=== PATIENT | male | born 1960 | race Caucasian/White ===

== ENCOUNTER → 2018-01-29 | Outpatient (CLI) | payer MEDICARE ==
[2014-05-05 12:15] VITALS: BMI 21.9
[~2018-01-29] MED LIST: ALB6.7R INH; ALP25 PO; ALP5 PO; BISM-40 PO; BUSP10TA95 PO; CEP500 PO; CIT20 PO; CLIN-75 PO; CLO1 PO; CLON-303 PO; DIA5 PO; DUL20 PO; DUL30 PO; ESC10 PO; ESOM40CA42 PO; FOL1 PO; GUALA600 PO; HCTZ25 PO; HYDR50CA47 PO; LANI SC; LEVO-85 PO; LISI-346 PO; LISI-362 PO; LORA-1455 PO; MET500 PO; MET850 PO; METF-415 PO; METF-420 PO; METO-566 PO; MULT-1350 PO; MULT-806 PO; MULT1CAP41 PO; MULT1TAB64 PO; NAPR550T20 PO; NO RTN MEDS; NOR25 PO; NYST15CR32 TP; NYST1POW TOP; OLAN2.5T20 PO; OND4 PO; ONDA4TAB PO; ONDA4TAB97 PO; ONDA8TAB94 PO; OXYGEN INH; PANT40TA63 PO; PRED20TA6 PO; PROAIRPT IH; PROM-110 PO; QUET50TA21 PO; RAN150 PO; RANI-320 PO; SILD25TA6 PO; THIA100T55 PO; TRAM-627 PO; TRAZ-133 PO; TRAZ50 PO; VITA0.4T7 PO; [UNRECOGNIZED DRUG - CODE] PO; [UNRECOGNIZED DRUG - REMARK]
--- NOTE | 2018-01-29 11:11 | RADIOLOGY IMAGING REPORT ---
FACILITY: [facility] - [place] PATIENT NAME: Casey Guzman : 1960 MR: [id number] V: [id number] EXAM DATE: ORDERING PHYSICIAN: TAMMIE GONZALEZ TECHNOLOGIST: Location: [facility] - [place] Patient: Casey Guzman : 1960 Visit/Account:[id number] Date of Sevice: 01/29/2018 Exam type: CHEST PA AND LAT History: COPD, shortness of breath, possible pneumonia Comparison: May 04, 2014. Findings: There is mild linear scarring in the mid to lower lung kumar bilaterally similar to the prior study. There is no evidence of acute effusions, infiltrates or edema. The cardiac silhouette is normal in size. The trachea is in midline. IMPRESSION: 1. Mild linear scarring in the mid to lower lung kumar similar to the prior study from December 04, 2013 Report Dictated By: Shona Lee MD at 01/29/2018 11:03 AM Report E-Signed By: Shona Lee MD at 01/29/2018 11:08 AM WSN:[email or web address]
== END ==
LOC: RAD 10:27
PROVIDERS: ATTEND Nurse Practitioner Family
DX: R91.8 Other nonspecific abnormal finding of lung field (principal)
CPT/HCPCS: 71046

== ENCOUNTER → 2018-03-31 | Outpatient (REF) | payer MEDICARE ==
[2014-05-05 12:15] VITALS: BMI 21.9
[2018-03-31 12:28] LABS: PLATELET COUNT, AUTOMATED 180 K/uL (150-450)
== END ==
LOC: ZZSTITCHES 11:51
PROVIDERS: ATTEND Physician Assistant
DX: R11.2 Nausea with vomiting, unspecified (principal)
CPT/HCPCS: 82040; 82247; 82310; 82374; 82435; 82565; 82947; 84075; 84132; 84155; 84295; 84450; 84460; 84520; 85025

== ENCOUNTER 2018-07-11 09:24 | Emergency (ER) | payer MEDICARE, MEDICAID ==
[2014-05-05 12:15] VITALS: BMI 21.9
[2018-07-11] MEDS ORDERED: NS(*) 0.9% 1000 ML BAG 1,000 ML IV ONE (09:26)
[2018-07-11] MEDS ORDERED: ALBUTEROL/IPRATROPIUM 3 ML NEB NEB ONE (09:30)
--- NOTE | 2018-07-11 09:31 | ER Report ---
History and Physical Time Seen By MD: 09:31 HPI/ROS CHIEF COMPLAINT: Alcohol intoxication, status post fall HISTORY OF PRESENT ILLNESS: Patient is a 57-year-old male who admitted to drinking a 1/5th of vodka this morning. Patient reportedly was brought into the emergency department by his neighbor who reports that the patient showed up on his doorstep this morning. Patient has a small laceration on the bridge of his nose and admits to falling on the sidewalk face forward. Patient denies taking illicit drugs, Tylenol, aspirin, antifreeze. Patient was belligerent at time of initial evaluation, threatening staff. Please see nursing notes for further details. REVIEW OF SYSTEMS: Constitutional: No fever, no chills. Eyes: No discharge. ENT: Sore nose, laceration to the bridge of the nose Cardiovascular: No chest pain, no palpitations. Respiratory: + Shortness of breath, wheezing Gastrointestinal: No abdominal pain, no vomiting. Genitourinary: No hematuria. Musculoskeletal: No back pain. Skin: No rashes. Neurological: No headache. Allergies: Coded Allergies: No Known Drug Allergies (Verified , 03/25/14) Uncoded Allergies: tijerina peppers (Adverse Reaction, Mild, GI DISTRESS, 01/25/10) Tijerina peppers only. Other types of peppers OK. Home Meds Active Scripts Folic Acid (FOLIC ACID) 1 Mg Tablet, 1 MG PO QDAY for 30 Days, #30 TAB Prov:ANISA ASTUDILLO DO 07/11/18 Thiamine Hcl (THIAMINE HCL) 100 Mg Tablet, 100 MG PO QDAY for 30 Days, #30 TAB Prov:ANISA ASTUDILLO DO 07/11/18 Reported Medications Escitalopram Oxalate (LEXAPRO) 10 Mg Tab, 10 MG PO QDAY, #30 TAB 1 Refill 5mg(half a tablet) daily for 4 days, the 10mg(1 whole tablet) daily. 05/07/14 Promethazine Hcl (PROMETHAZINE HCL) 25 Mg Tablet, 25 MG PO Q8H Y for NAUSEA, # 10 TAB 05/07/14 Sildenafil Citrate (VIAGRA) 25 Mg Tablet, 25 MG PO ONCE Y for SEE COMMENT, #5 0 Refills 1 tab 90 minutes priop to sexual activity 05/07/14 Multivitamin (MULTI VITAMIN DAILY) 1 Each Tablet, 1 EACH PO QDAY 05/07/14 Albuterol Sulfate (PROVENTIL HFA) 6.7 Gm Inh, 1-2 PUFF INH 3-4XD, INH 03/02/14 Lisinopril (LISINOPRIL) 10 Mg Tablet, 10 MG PO QDAY 03/02/14 Naproxen Sodium (NAPROXEN SODIUM) 550 Mg Tablet, 550 MG PO TID, TAB 03/02/14 Albuterol Sulfate (Proair Hfa) 8.5 Gm Aer.w.adap, 8.5 GM IH PRN, 0 Refills 11/13/11 Hx Smoking: Yes Smoking Status: Former Smoker Exposure to Second Hand Smoke?: No Hx Substance Use Disorder: Yes (etoh dependence) Hx Alcohol Use: Yes Constitutional Vital Sign - Last 24 Hours 07/11/18 07/11/18 07/11/18 07/11/18 09:25 09:30 09:35 09:35 Temp 97.7 Pulse 96 104 85 Resp 22 14 20 B/P (MAP) 161/111 164/115 (131) Pulse Ox 95 88 95 O2 Delivery Nasal Cannula Nasal Cannula Nasal Cannula O2 Flow Rate 2 07/11/18 07/11/18 07/11/18 07/11/18 09:45 09:45 09:48 10:00 Pulse 80 84 Resp 22 20 Pulse Ox 86 O2 Flow Rate 2.0 07/11/18 07/11/18 07/11/18 07/11/18 10:15 10:30 10:45 11:00 Pulse 84 83 70 71 B/P (MAP) 133/98 (110) 133/106 (115) 130/119 (123) 126/77 (93) Pulse Ox 86 87 80 89 Intake and Output 07/11/18 07/11/18 07/12/18 15:00 23:00 07:00 Intake Total 200 ml Balance 200 ml Physical Exam General Appearance: The patient is alert, has no immediate need for airway protection and no signs of toxicity. Moderate distress secondary to difficulty breathing, intoxication Eyes: Pupils equal and round no pallor or injection. ENT, Mouth: 17 m laceration to the bridge of the nose Respiratory: Wheezing in bilateral lung kumar Cardiovascular: Regular rate and rhythm. Gastrointestinal: Abdomen is soft and non tender, no masses, bowel sounds normal. Neurological: Moving all extremities, intoxicated Skin: Small laceration to the bridge of the nose Musculoskeletal: Neck is supple non tender. Extremities are nontender, nonswollen and have full range of motion. DIFFERENTIAL DIAGNOSIS: After history and physical exam differential diagnosis was considered for altered mental status including but not limited to hypoglycemia, infectious process, electrolyte abnormality, head injury and intoxicants. Medical Decision Making Data Points Result Diagram: 07/11/18 0932 07/11/18 0932 Laboratory Hematology Test 07/11/18 09:32 07/11/18 11:15 Red Blood Count 5.63 M/uL (4.00-5.60) Mean Corpuscular Volume 89.1 fL (80.0-96.0) Mean Corpuscular Hemoglobin 31.8 pg (26.0-33.0) Mean Corpuscular Hemoglobin Concent 35.7 g/dL (32.0-36.0) Red Cell Distribution Width 14.3 % (11.5-14.5) Mean Platelet Volume 6.7 fL (7.2-11.1) Neutrophils (%) (Auto) 58.7 % (39.4-72.5) Lymphocytes (%) (Auto) 29.6 % (17.6-49.6) Monocytes (%) (Auto) 9.1 % (4.1-12.4) Eosinophils (%) (Auto) 1.7 % (0.4-6.7) Basophils (%) (Auto) 0.9 % (0.3-1.4) Nucleated RBC Relative Count (auto) 0.2 /100WBC Neutrophils # (Auto) 6.5 K/uL (2.0-7.4) Lymphocytes # (Auto) 3.3 K/uL (1.3-3.6) Monocytes # (Auto) 1.0 K/uL (0.3-1.0) Eosinophils # (Auto) 0.2 K/uL (0.0-0.5) Basophils # (Auto) 0.1 K/uL (0.0-0.1) Nucleated RBC Absolute Count (auto) 0.02 K/uL Blood Gas Patient Temperature 97.7 DEGREES Venous Blood pH 7.39 (7.31-7.41) Venous Blood Partial Pressure CO2 42 mmHg Venous Blood Partial Pressure O2 61 mmHg Venous Blood HCO3 25 mmol/L Venous Blood Oxygen Saturation 91 % Venous Blood Base Excess 0 mmol/L Carboxyhemoglobin 2.4 % (< 5.0) Oxygen Liters/Minute 2l Sodium Level 142 mmol/L (137-145) Potassium Level 4.0 mmol/L (3.5-5.0) Chloride Level 101 mmol/L (98-107) Carbon Dioxide Level 25 mmol/L (22-30) Blood Urea Nitrogen 11 mg/dl (9-21) Creatinine 0.80 mg/dl (0.66-1.25) Glomerular Filtration Rate Calc > 60.0 Random Glucose 180 mg/dl (75-110) Calcium Level 8.7 mg/dl (8.4-10.2) Total Bilirubin 0.5 mg/dl (0.2-1.3) Aspartate Amino Transf (AST/SGOT) 48 U/L (0-35) Alanine Aminotransferase (ALT/SGPT) 51 U/L (0-56) Alkaline Phosphatase 87 U/L (0-126) Ammonia < 9 UMOL/L (9-33) Troponin I 0.016 ng/ml Total Protein 7.5 g/dl (6.3-8.2) Albumin 4.6 g/dl (3.5-5.0) Serum Alcohol 446 mg/dl Urine Color Straw Urine Clarity Clear Urine pH 6.0 pH (4.8-9.5) Urine Specific Cameron 1.005 Urine Protein Negative mg/dL (NEGATIVE) Urine Glucose (UA) 150 mg/dL (NEGATIVE) Urine Ketones Negative mg/dL (NEGATIVE) Urine Blood Small (NEGATIVE) Urine Nitrite Negative (NEGATIVE) Urine Bilirubin Negative (NEGATIVE) Urine Urobilinogen Negative mg/dL (0.2-1.9) Urine Leukocyte Esterase Negative (NEGATIVE) Urine RBC <1 /HPF (0-2/HPF) Urine WBC None /HPF (0-5/HPF) Urine Squamous Epithelial Cells Few /LPF (</=FEW) Urine Bacteria Negative /HPF (NONE-FEW) Urine Mucus None /HPF (NONE-FEW) Urine Opiates Screen Positive Urine Barbiturates Screen Negative Ur Tricyclic Antidepressants Screen Negative Urine Phencyclidine Screen Negative Urine Amphetamines Screen Negative Urine Benzodiazepines Screen Negative Urine Cocaine Screen Negative Urine Cannabinoids Screen Negative Chemistry Test 07/11/18 09:32 07/11/18 11:15 White Blood Count 11.1 k/uL (4.5-11.0) Red Blood Count 5.63 M/uL (4.00-5.60) Hemoglobin 17.9 g/dL (14.0-18.0) Hematocrit 50.1 % (42.0-52.0) Mean Corpuscular Volume 89.1 fL (80.0-96.0) Mean Corpuscular Hemoglobin 31.8 pg (26.0-33.0) Mean Corpuscular Hemoglobin Concent 35.7 g/dL (32.0-36.0) Red Cell Distribution Width 14.3 % (11.5-14.5) Platelet Count 253 K/uL (150-450) Mean Platelet Volume 6.7 fL (7.2-11.1) Neutrophils (%) (Auto) 58.7 % (39.4-72.5) Lymphocytes (%) (Auto) 29.6 % (17.6-49.6) Monocytes (%) (Auto) 9.1 % (4.1-12.4) Eosinophils (%) (Auto) 1.7 % (0.4-6.7) Basophils (%) (Auto) 0.9 % (0.3-1.4) Nucleated RBC Relative Count (auto) 0.2 /100WBC Neutrophils # (Auto) 6.5 K/uL (2.0-7.4) Lymphocytes # (Auto) 3.3 K/uL (1.3-3.6) Monocytes # (Auto) 1.0 K/uL (0.3-1.0) Eosinophils # (Auto) 0.2 K/uL (0.0-0.5) Basophils # (Auto) 0.1 K/uL (0.0-0.1) Nucleated RBC Absolute Count (auto) 0.02 K/uL Blood Gas Patient Temperature 97.7 DEGREES Venous Blood pH 7.39 (7.31-7.41) Venous Blood Partial Pressure CO2 42 mmHg Venous Blood Partial Pressure O2 61 mmHg Venous Blood HCO3 25 mmol/L Venous Blood Oxygen Saturation 91 % Venous Blood Base Excess 0 mmol/L Carboxyhemoglobin 2.4 % (< 5.0) Oxygen Liters/Minute 2l Glomerular Filtration Rate Calc > 60.0 Calcium Level 8.7 mg/dl (8.4-10.2) Total Bilirubin 0.5 mg/dl (0.2-1.3) Aspartate Amino Transf (AST/SGOT) 48 U/L (0-35) Alanine Aminotransferase (ALT/SGPT) 51 U/L (0-56) Alkaline Phosphatase 87 U/L (0-126) Ammonia < 9 UMOL/L (9-33) Troponin I 0.016 ng/ml Total Protein 7.5 g/dl (6.3-8.2) Albumin 4.6 g/dl (3.5-5.0) Serum Alcohol 446 mg/dl Urine Color Straw Urine Clarity Clear Urine pH 6.0 pH (4.8-9.5) Urine Specific Cameron 1.005 Urine Protein Negative mg/dL (NEGATIVE) Urine Glucose (UA) 150 mg/dL (NEGATIVE) Urine Ketones Negative mg/dL (NEGATIVE) Urine Blood Small (NEGATIVE) Urine Nitrite Negative (NEGATIVE) Urine Bilirubin Negative (NEGATIVE) Urine Urobilinogen Negative mg/dL (0.2-1.9) Urine Leukocyte Esterase Negative (NEGATIVE) Urine RBC <1 /HPF (0-2/HPF) Urine WBC None /HPF (0-5/HPF) Urine Squamous Epithelial Cells Few /LPF (</=FEW) Urine Bacteria Negative /HPF (NONE-FEW) Urine Mucus None /HPF (NONE-FEW) Urine Opiates Screen Positive Urine Barbiturates Screen Negative Ur Tricyclic Antidepressants Screen Negative Urine Phencyclidine Screen Negative Urine Amphetamines Screen Negative Urine Benzodiazepines Screen Negative Urine Cocaine Screen Negative Urine Cannabinoids Screen Negative Toxicology Test 07/11/18 09:32 07/11/18 11:15 Serum Alcohol 446 mg/dl Urine Opiates Screen Positive Urine Barbiturates Screen Negative Ur Tricyclic Antidepressants Screen Negative Urine Phencyclidine Screen Negative Urine Amphetamines Screen Negative Urine Benzodiazepines Screen Negative Urine Cocaine Screen Negative Urine Cannabinoids Screen Negative Urinalysis Test 07/11/18 11:15 Urine Color Straw Urine Clarity Clear Urine pH 6.0 pH (4.8-9.5) Urine Specific Cameron 1.005 Urine Protein Negative mg/dL (NEGATIVE) Urine Glucose (UA) 150 mg/dL (NEGATIVE) Urine Ketones Negative mg/dL (NEGATIVE) Urine Blood Small (NEGATIVE) Urine Nitrite Negative (NEGATIVE) Urine Bilirubin Negative (NEGATIVE) Urine Urobilinogen Negative mg/dL (0.2-1.9) Urine Leukocyte Esterase Negative (NEGATIVE) Urine RBC <1 /HPF (0-2/HPF) Urine WBC None /HPF (0-5/HPF) Urine Squamous Epithelial Cells Few /LPF (</=FEW) Urine Bacteria Negative /HPF (NONE-FEW) Urine Mucus None /HPF (NONE-FEW) EKG/Imaging EKG Interpretation 12 lead EKG: Normal sinus rhythm, rate 77, QTC 430, no ischemic changes Rhythm: Normal sinus rhythm [place]: normal QRS: normal ST segments: normal Monitor Interpretation: Normal Sinus Rhythm Imaging CHEST SINGLE AP Indication: Shortness of breath, fall, altered mental status.. Comparison: 01/29/2018. Findings: Cardiomediastinal silhouette and pulmonary vessels within normal is for the technique and inspiration. There is no focal infiltrate or lobar consolidation. No pneumothorax or pleural effusion. Mild scarring seen in the right lower lobe. No discrete nodule. Upper abdomen is unremarkable. No acute bony abnormality. IMPRESSION: 1. No acute cardiopulmonary process. No indication of thoracic trauma. HEAD W/O CONTRAST HISTORY: Altered metal status, fall COMPARISON STUDIES: none TECHNIQUE: Contiguous axial images were obtained from the skull base to the vertex. One of the following dose optimization techniques was utilized in the performance of this exam: Automated exposure control; adjustment of the mA and/ or kV according to the patient's size; or use of an iterative reconstruction technique. Specific details can be referenced in the facility's radiology CT exam operational policy. FINDINGS: Hemorrhage: Negative Ventricles / sulci / fissures: Negative Masses / midline shift: Negative White matter: Negative Granado-white differentiation: Negative Extra-axial spaces: Negative Bones and skull base: Negative Visualized mastoid air cells / paranasal sinuses: Nasal septum is significantly deviated towards the right. IMPRESSION: 1. Unremarkable non-contrast head CT. No evidence for acute intracranial hemorrhage, mass or acute ischemia. ED Course/Re-evaluation ED Course Patient is a 57-year-old male here with suspected alcohol intoxication, status post fall which was unwitnessed. Portably showed up at his neighbor's doorstep to brought him to the emergency department. Patient reportedly and self- admittedly drank a 1/5th of vodka this morning.. Alcohol level is 446 at time of evaluation. Patient initially was complaining of significant shortness of breath with audible bilateral wheezing for which he was given a DuoNeb with moderate relief of symptoms. Patient was belligerent at time of evaluation, threatening staff so police were initially contacted and the patient was given Haldol 5 mg intramuscular and Zyprexa. CT of the head showed no acute intracranial pathology. Chest x-ray was unremarkable. Labs were remarkable for an alcohol level of 446. Troponin level was 0.016 however patient denied chest pain and EKG showed no ischemic changes. Repeat troponin was not indicated at this time. Tetanus booster was updated. Labs are otherwise unremarkable. Scripts for thiamine and folic acid were given. Patient was advised to follow up with his PCP in the next 2 days. Decision to Disposition Date: Jul 11, 2018 Decision to Disposition Time: 14:05 Depart Departure Latest Vital Signs Vital Signs Date Time Temp Pulse Resp B/P (MAP) Pulse Ox O2 Delivery O2 Flow Rate FiO2 07/11/18 11:00 71 126/77 (93) 89 07/11/18 09:48 2.0 07/11/18 09:45 20 07/11/18 09:35 Nasal Cannula 07/11/18 09:25 97.7 Impression: Primary Impression: Alcohol intoxication Additional Impression: Fall Condition: Improved Disposition: HOME OR SELF-CARE New Scripts Folic Acid (FOLIC ACID) 1 Mg Tablet 1 MG PO QDAY for 30 Days, #30 TAB Prov: ANISA ASTUDILLO DO 07/11/18 Thiamine Hcl (THIAMINE HCL) 100 Mg Tablet 100 MG PO QDAY for 30 Days, #30 TAB Prov: ANISA ASTUDILLO DO 07/11/18 Patient Instructions: Abuse of Alcohol (ED), Fall Prevention (ED) Additional Instructions: Please consider alcohol cessation. CT imaging of the head showed no signs of bleeding on the brain. Your chest x-ray was normal. Please take one tablet of thiamine and 1 tablet of folic acid daily for nutrition improvement. Please follow-up with your family doctor in the next 2 days. Please return promptly if you develop worsening headache, blurred vision, seizures, chest pain or shortness breath, fevers or chills, abdominal pain, nausea or vomiting. Problem Qualifiers ANISA ASTUDILLO DO Jul 11, 2018 09:31
[2018-07-11] MEDS ORDERED: HALOPERIDOL LACT 5 MG/ML VIAL IM ONE (09:35)
[2018-07-11 09:45] LABS: PLATELET COUNT, AUTOMATED 253 K/uL (150-450)
--- NOTE | 2018-07-11 10:27 | RADIOLOGY IMAGING REPORT ---
FACILITY: [facility] - [place] PATIENT NAME: Casey Guzman : 1960 MR: [id number] V: [id number] EXAM DATE: ORDERING PHYSICIAN: ANISA ASTUDILLO TECHNOLOGIST: Location: [facility] [place] Patient: Casey Guzman : 1960 Visit/Account:[id number] Date of Sevice: 07/11/2018 CHEST SINGLE AP Indication: Shortness of breath, fall, altered mental status.. Comparison: 01/29/2018. Findings: Cardiomediastinal silhouette and pulmonary vessels within normal is for the technique and inspiration . There is no focal infiltrate or lobar consolidation. No pneumothorax or pleural effusion. Mild scarring seen in the right lower lobe. No discrete nodule. Upper abdomen is unremarkable. No acu te bony abnormality. IMPRESSION: 1. No acute cardiopulmonary process. No indication of thoracic trauma. Report Dictated By: John Paul Lisa at 07/11/2018 10:22 AM Report E-Signed By: John Paul Lisa at 07/11/2018 10:23 AM WSN:[email or web address]
[2018-07-11] MEDS ORDERED: OLANZapine 10 MG VIAL IM ONLY ONE (10:30)
[2018-07-11] MEDS ORDERED: WATER STERILE 10 ML VIAL IM ONLY ONE (10:30)
--- NOTE | 2018-07-11 11:48 | RADIOLOGY IMAGING REPORT ---
FACILITY: [facility] PATIENT NAME: Casey Guzman : 1960 MR: [id number] V: [id number] EXAM DATE: ORDERING PHYSICIAN: ANISA ASTUDILLO TECHNOLOGIST: Location: [facility] - [place] Patient: Casey Guzman : 1960 Visit/Account:[id number] Date of Sevice: 07/11/2018 HEAD W/O CONTRAST HISTORY: Altered metal status, fall COMPARISON STUDIES: none TECHNIQUE: Contiguous axial images were obtained from the skull base to the vertex. One of the following dose optimization techniques was utilized in the performance of this exam: Autom ated exposure control; adjustment of the mA and/or kV according to the patient's size; or use of an i terative reconstruction technique. Specific details can be referenced in the facility's radiology C T exam operational policy. FINDINGS: Hemorrhage: Negative Ventricles / sulci / fissures: Negative Masses / midline shift: Negative White matter: Negative Granado-white differentiation: Negative Extra-axial spaces: Negative Bones and skull base: Negative Visualized mastoid air cells / paranasal sinuses: Nasal septum is significantly deviated towards the right. IMPRESSION: 1. Unremarkable non-contrast head CT. No evidence for acute intracranial hemorrhage, mass or acute i schemia. Report Dictated By: John Paul Varela MD at 07/11/2018 11:40 AM Report E-Signed By: John Paul Varela MD at 07/11/2018 11:44 AM WSN:[id number]
[2018-07-11] MEDS ORDERED: DIPHTH/TETANUS/ACEL. PERTUSSIS IM ONLY ONE (12:00)
[2018-07-11] MEDS ORDERED: FOLI-68 PO (12:04)
[2018-07-11] MEDS ORDERED: THIA100T62 PO (12:04)
--- NOTE | 2018-07-11 13:25 | EKG ---
FACILITY: [facility] PATIENT NAME: SUSSY HALL : [id number] MR: [id number] V: [id number] EXAM DATE: ORDERING PHYSICIAN: ANISA ASTUDILLO TECHNOLOGIST: MAXIMILIAN Riley Reason : SOB Blood Pressure : / mmHG Vent. Rate : 077 BPM Atrial Rate : 077 BPM P-R Int : 146 ms QRS Dur : 092 ms QT Int : 380 ms P-R-T Axes : 067 007 048 degrees QTc Int : 430 ms Sinus rhythm No acute appearing findings, but artifact in several leads - repeat if needed When compared with ECG of 07-MAY-2014 09:25, No significant change was found Confirmed by MAKENZIE DE LEON ([id number]) on 07/12/2018 6:03:31 AM Referred By: BAUDILIO Confirmed By:MAKENZIE DE LEON
== END 2018-07-11 14:11 | disposition home or self-care (01) ==
LOC: ER 09:53
DX: F10.920 Alcohol use, unspecified with intoxication, uncomplicated (principal); R06.02 Shortness of breath
CPT/HCPCS: 70450; 71045; 80305; 81001; 82140; 82375; 82803; 84443; 84484; 85025; 93005; 94640; 96360; 96372; 99284; A4216; G0480; J1630; J3490; J7030; J7620; 80320; 82040; 82247; 82310; 82374; 82435; 82565; 82947; 84075; 84132; 84155; 84295; 84450; 84460; 84520

== ENCOUNTER → 2018-07-22 | Outpatient (CLI) | payer MEDICARE, MEDICAID ==
[2014-05-05 12:15] VITALS: BMI 21.9
[~2018-07-22] MED LIST changes: +FOLI-68 PO; +THIA100T62 PO
--- NOTE | 2018-07-22 15:41 | RADIOLOGY IMAGING REPORT ---
FACILITY: [facility] - [place] PATIENT NAME: Casey Guzman : 1960 MR: [id number] V: [id number] EXAM DATE: ORDERING PHYSICIAN: TAMMIE GONZALEZ TECHNOLOGIST: Location: [facility] [place] Patient: Casey Guzman : 1960 Visit/Account:[id number] Date of Sevice: 07/22/2018 SHOULDERS BILAT 2 OR MORE VIEW COMPARISONS: None. ADDITIONAL PERTINENT HISTORY: Chronic bilateral shoulder pain. FINDINGS: Osseous structures: Subchondral sclerosis and osteophyte formation involving the acromioclavicular tricia ints bilaterally. No other bony abnormalities. Joint spaces: Mild joint space narrowing involving the acromioclavicular joints. Otherwise negative Surrounding soft tissues: Negative. IMPRESSION: 1. Osteoarthritic changes involving both shoulders. 2. No acute appearing bony abnormalities. Report Dictated By: Hunter Funez MD at 07/22/2018 3:35 PM Report E-Signed By: Hunter Funez MD at 07/22/2018 3:36 PM WSN:[email or web address]
== END ==
LOC: RAD 14:30
PROVIDERS: ATTEND Nurse Practitioner Family
DX: M19.012 Primary osteoarthritis, left shoulder (principal); M19.011 Primary osteoarthritis, right shoulder

== ENCOUNTER → 2018-08-31 | Outpatient (CLI) | payer MEDICARE, MEDICAID ==
[2014-05-05 12:15] VITALS: BMI 21.9
== END ==
LOC: LAB 10:00
PROVIDERS: ATTEND Internal Medicine Rheumatology
DX: M05.79 Rheumatoid arthritis with rheumatoid factor of multiple sites without organ or systems involvement (principal)
CPT/HCPCS: 36415; 82040; 82247; 82310; 82374; 82435; 82565; 82947; 84075; 84132; 84155; 84295; 84450; 84460; 84520; 85027; 85651; 86480

== ENCOUNTER 2018-10-18 08:01 | Outpatient (RCR) | payer MEDICARE, MEDICAID ==
[2014-05-05 12:15] VITALS: Wt 87.7 kg
[2018-09-02] MEDS: LIDOCAINE/SOD BICARB 8.4% SYR ID PRN (15:42)
[2018-09-02] MEDS: NS(*) 0.9% 100 ML BAG 100 ML IVPB PRN (15:42)
[2018-09-03] MEDS: LIDOCAINE/SOD BICARB 8.4% SYR ID PRN (08:52)
[2018-09-03] MEDS: ACETAMINOPHEN 325 MG TAB PO PRN (08:52)
[2018-09-03] MEDS: diphenhydrAMINE 25 MG CAP PO PRN (08:52)
[2018-09-03 08:53] VITALS: BP 116/73
[2018-09-03] MEDS: NS(*) 0.9% 100 ML BAG 100 ML IVPB PRN (08:53)
[2018-09-20 08:17] VITALS: BP 130/94
[2018-09-20] MEDS: diphenhydrAMINE 25 MG CAP PO PRN (08:35)
[2018-09-20] MEDS: ACETAMINOPHEN 325 MG TAB PO PRN (08:35)
[2018-09-20] MEDS: LIDOCAINE/SOD BICARB 8.4% SYR ID PRN (08:35)
[2018-09-20] MEDS: NS(*) 0.9% 100 ML BAG 100 ML IVPB PRN (08:36)
[2018-09-20 08:38] LABS: PLATELET COUNT, AUTOMATED 170 K/uL (150-450)
[~2018-10-18 08:01] MED LIST changes: +DEXTROSE 5%(*) 100 ML BAG 100 ML IVPB PRN; +inFLIXimab 100 MG VIAL 300 MG in NS(*) 0.9% 250 ML BAG 250 ML IVPB ONE
[2018-10-18 08:06] VITALS: BP 137/88
[2018-10-18] MEDS: diphenhydrAMINE 25 MG CAP PO PRN (08:23)
[2018-10-18] MEDS: ACETAMINOPHEN 325 MG TAB PO PRN (08:23)
[2018-10-18] MEDS: NS(*) 0.9% 100 ML BAG 100 ML IVPB PRN (08:24)
[2018-10-18] MEDS: LIDOCAINE/SOD BICARB 8.4% SYR ID PRN (08:24)
[2018-10-18 08:25] LABS: PLATELET COUNT, AUTOMATED 160 K/uL (150-450)
[2018-10-18] MEDS ORDERED: inFLIXimab 100 MG VIAL 300 MG in NS(*) 0.9% 250 ML BAG 250 ML IVPB ONE (09:15)
== END 2018-11-30 ==
LOC: SPU 08:01
PROVIDERS: ATTEND Internal Medicine Rheumatology
DX: M05.541 Rheumatoid polyneuropathy with rheumatoid arthritis of right hand (principal)
CPT/HCPCS: 85025; 96413; 96415; A9270; J1745; J7050; Q0163; 82040; 82247; 82310; 82374; 82435; 82565; 82947; 84075; 84132; 84155; 84295; 84450; 84460; 84520

== ENCOUNTER → 2018-10-21 | Outpatient (CLI) | payer MEDICARE, MEDICAID ==
[2014-05-05 12:15] VITALS: BMI 21.9
[~2018-10-21] MED LIST changes: -DEXTROSE 5%(*) 100 ML BAG 100 ML IVPB PRN; -inFLIXimab 100 MG VIAL 300 MG in NS(*) 0.9% 250 ML BAG 250 ML IVPB ONE
--- NOTE | 2018-10-21 14:53 | RADIOLOGY IMAGING REPORT ---
FACILITY: [facility] - [place] PATIENT NAME: Casey Guzman : 1960 MR: [id number] V: [id number] EXAM DATE: ORDERING PHYSICIAN: TAMMIE GONZALEZ TECHNOLOGIST: Location: [facility] [place] Patient: Casey Guzman : 1960 Visit/Account:[id number] Date of Sevice: 10/21/2018 CHEST PA AND LAT HISTORY: Chronic obstructive lung disease. COMPARISON: Chest x-ray July 11, 2018. FINDINGS: Cardiomediastinal contours: The heart size is normal. Lungs and pleura: Linear density in the right lung is similar to that noted on the previous study. I t likely represents scar. There is also scarring in the left midlung that when allowing for the diff erence in technique is stable. There is no new infiltrate, pleural effusion or lymphadenopathy. Bones/soft tissues: There are no findings of a fracture. IMPRESSION: 1. No active disease in the chest. 2. Findings of scarring in both lungs as described above. Report Dictated By: Matt Tran MD at 10/21/2018 2:47 PM Report E-Signed By: Matt Tran MD at 10/21/2018 2:49 PM WSN:[email or web address]
== END ==
LOC: RAD 14:09
PROVIDERS: ATTEND Nurse Practitioner Family
DX: J18.9 Pneumonia, unspecified organism (principal); J44.9 Chronic obstructive pulmonary disease, unspecified
CPT/HCPCS: 71046

== ENCOUNTER → 2018-11-01 | Outpatient (CLI) | payer MEDICARE, MEDICAID ==
[2014-05-05 12:15] VITALS: BMI 21.9
[2018-11-01 12:23] LABS: PLATELET COUNT, AUTOMATED 190 K/uL (150-450)
--- NOTE | 2018-11-01 17:54 | RADIOLOGY IMAGING REPORT ---
FACILITY: [facility] - [place] PATIENT NAME: Casey Guzman : 1960 MR: [id number] V: [id number] EXAM DATE: ORDERING PHYSICIAN: JACOB JOLLY TECHNOLOGIST: Location: [facility] Patient: Casey Guzman : 1960 Visit/Account:[id number] Date of Sevice: 11/01/2018 CHEST W/O CONTRAST Provided history: Shortness of breath, pneumonia, COPD Additional pertinent history: none TECHNIQUE: Spiral scan was obtained from the lower neck through the lung bases without intravenous co ntrast. Source images were reformatted in the coronal and sagittal planes. Additional series performed today: High-resolution thin section axial scans were obtained at non-co ntiguous intervals during inspiration and expiration. One of the following dose optimization techniques was utilized in the performance of this exam: Autom ated exposure control; adjustment of the mA and/or kV according to the patient's size; or use of an i terative reconstruction technique. Specific details can be referenced in the facility's radiology CT exam operational policy. COMPARISON STUDIES: Upper images from CT abdomen 04/18/[address] of the chest 04/01/09 FINDINGS: Lungs / pleura / mile: General screening reveals no consolidation or pleural fluid. The high-resolution study reveals no dominant pattern of interstitial lung disease. Instead, there a re stable coarse linear and curvilinear densities in both lung bases that are likely due to old posti nflammatory scar. More acute appearing inflammatory disease is present on study of 2008 now reflecti ng scar. There is no evidence of honeycombing or traction bronchiectasis. No dominant centrilobular or interlobular nodular pattern. No significant groundglass attenuation component. Expiration seri es reveals no significant obstructive airways disease. No collapse of the main airways. Lower neck: negative Mediastinum: negative Heart / pericardium: negative Vessels: Mild coronary artery calcification. Normal caliber main pulmonary artery. Lymph nodes: negative Body wall: Mild symmetric gynecomastia Upper abdomen: negative Bones: negative IMPRESSION: 1. There is no dominant pattern of chronic interstitial lung disease. Changes in both lungs are mos t likely due to postinflammatory scar and are quite similar to CT of 02/16/14. 2. No acute consolidation or pleural fluid. 3. Additional mild chronic changes per above. Report Dictated By: Marcello Paige MD at 11/01/2018 5:38 PM Report E-Signed By: Marcello Paige MD at 11/01/2018 5:50 PM WSN:[id number]
== END ==
LOC: CT 10-27 00:49
PROVIDERS: ATTEND Internal Medicine
DX: R06.02 Shortness of breath (principal); M06.9 Rheumatoid arthritis, unspecified; J45.909 Unspecified asthma, uncomplicated
CPT/HCPCS: 36415; 71250; 82785; 85025; 86038; 86200; 86255

== ENCOUNTER → 2018-11-12 | Outpatient (CLI) | payer MEDICARE, MEDICAID ==
[2014-05-05 12:15] VITALS: BMI 21.9
[2018-11-12 09:45] LABS: INR 0.98
--- NOTE | 2018-11-12 12:17 | RADIOLOGY IMAGING REPORT ---
FACILITY: [facility] - [place] PATIENT NAME: Casey Guzman : 1960 MR: [id number] V: [id number] EXAM DATE: ORDERING PHYSICIAN: BECKY JOHNSON TECHNOLOGIST: Location: [facility] Patient: Casey Guzman : 1960 Visit/Account:[id number] Date of Sevice: 11/12/2018 EXAMINATION: Cervical spine radiographs 2 views HISTORY: Right shoulder impingement, rotator cuff tear. Rheumatoid arthritis. COMPARISON: CT of the cervical spine from 11/09/2009. FINDINGS: Flexion and extension views of the cervical spine are obtained. Bones: Cervical spine is adequately visualized through the cervicothoracic junction. No acute fractu re or dislocation. Prominent bridging anterior bone spur at C3-4. Disc spaces: Mild disc space narrowing and endplate sclerosis from C4-5 and C5-6. Posterior elements: Negative. Alignment: Grade 1 retrolisthesis at C3-4 measuring 2 mm, which does not change between flexion and extension. There is no abnormal motion of the atlantoaxial joint. Hardware: None. Soft tissues: Negative. Visualized lung apices: Negative. IMPRESSION: 1. No evidence of instability of the cervical spine, or abnormal motion at the atlantoaxial joint. 2. Bridging bone spur at C3-4, with mild degenerative disc disease at C4-5 and C5-6. 3. Grade 1 degenerative retrolisthesis at C3-4. Report Dictated By: Dorothy Mason MD at 11/12/2018 12:07 PM Report E-Signed By: Dorothy Mason MD at 11/12/2018 12:12 PM WSN:[email or web address]
== END ==
LOC: RAD 09:03
PROVIDERS: ATTEND Orthopaedic Surgery
DX: Z01.812 Encounter for preprocedural laboratory examination (principal); M43.6 Torticollis
CPT/HCPCS: 36415; 72040; 83036; 85610

== ENCOUNTER 2018-11-30 10:30 | Outpatient (RCR) | payer MEDICARE, MEDICAID ==
[2014-05-05 12:15] VITALS: BMI 21.9
--- NOTE | 2018-09-21 14:42 | PT INITIAL EVALUATION ---
MEDICAL DIAGNOSIS: B shoulder impingement, GH joint arthrosis TREATMENT DIAGNOSIS: same DATE OF ONSET: 12/22/17 SUBJECTIVE: Casey Guzman presents to physical therapy with complaints of B shoulder pain that started approximately 9-10 months ago. He reports that he has received x-rays and Cortizone injections in B shoulders. He reports that he has intermittent cervical pain. He reports that the B shoulder pain started for no apparent reason. 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 He rates his L shoulder pain to be 6-7/10. He rates his R shoulder pain to be 5/10. He reports that he has difficulty with turning his steering wheel with one hand due to pain, unable to perform pushups, unable to sleep on B shoulder, unable to sleep on B shoulders, and unable to assist in remodeling house. He reports that he would like to decreased B shoulder pain and return to performing all those functional activities without pain. He reports that he does have a history of neck pain.. He reports that he performs pulleys and other exercises to warm the B shoulder up and states that it takes a long time to warm them up. He reports that the sauna and steam room decrease pain and improve function. Pain location is B anterior/superior/lateral portion of his B shoulders and described as achy. Pain scale is 7 on a ten point pain scale. REHAB PROBLEM LIST: Increased Pain Decreased ROM Decreased Strength Decreased Endurance Decreased Function Decreased ADL's PREVIOUS MEDICAL HISTORY: See EMR OCCUPATION: Disabled OBJECTIVE: Posture: He demonstrates forward head, B rounded shoulders, increased thoracic kyphosis, and decreased lumbar lordosis. ROM: B shoulder AROM: flexion: 80-100 degrees with pain eccentrically and concentrically, scaption: 105 degrees with pain eccentrically and concentrically, abduction: 90 degrees with pain eccentrically and concentrically, IR: 90 degrees with end range pain. ER: 20 degrees with end range pain. Cervical AROM: R rotation: decreased and painful, L rotation: decreased and painful, extension: decreased and painful, flexion: normal with muscular end feel. R and L sidebending: decreased and painful, protrusion: normal and muscular end feel. RET: normal and muscular end feel. Strength: B shoulder flexion, abduction, scaption, IR, and ER: strong and painful. Palpation: TTP: anterior shoulder, AC joint, and lateral shoulder joint Sensation: C2-T2 intact B Special Tests: Repeated RET: increased pain during the test and better following the test with increased cervical AROM. Repeated RET with extension: increased pain during the test and better following the test with increased cervical AROM. Repeated flexion: increased pain during and worse following with decreased cervical AROM. Repeated IR: increased pain during the test and better following the test with increased B shoulder flexion and abduction AROM with decreased eccentric lowering pain. (+) for impingement in B shoulders with potential RTC and LHB involvement. Mobility: Independent Balance: Will test in the future ASSESSMENT: Casey will benefit from skilled physical therapy addressing the listed impairments to improve function and QOL. Based on his examination, his cervical spine is not connected to his B shoulder pain and is experiencing B shoulder pain from the shoulder origin. However, his provisional classification is derangement on B shoulders that significantly improved pain and increased B shoulder AROM following the specific exercise, which improves his prognosis. Short Term Goals 3 weeks: Pt will demonstrate significant improvements in PROM-AAROM of B shoulder from baseline to full motion to improve function and QOL. 6 weeks: Pt will demonstrate significant improvements in AROM of B shoulder from baseline to full motion to improve function and QOL. 8 weeks: Pt will demonstrate significant improvement in B RTC and periscapular musculature from baseline to 4+/5 or greater to improve function and QOL. Patient's Goals improve pain, be able to do pushups, sleep on shoulders, and have more free motion PLAN: Patient to be seen for Manual Therapy/STM/MET Strengthening/condition Ice/Heat Range of Motion Spinal Stabilization Work Hardening/Cond Stretching Iontophoresis Neuromuscular Re-ed Closed Chain Program Electrical Stim Posture/Body mechanics Home Exercise Program Therapeutic Activities 2x/Week for 2 Months If you have any questions, comments, or concerns about this report or plan, please contact me at . Thank you, Julio Henry, PT, DPT MTDD
--- NOTE | 2018-11-11 18:34 | PT PLAN OF CARE ---
Physician: Fady Hays MD Patient is being seen: 2x/week Therapist: Julio Henry, PT, DPT Medical Diagnosis: B shoulder impingement, GH joint arthrosis Treatment Diagnosis: same Date of Onset: 12/22/17 Date of Initial Evaluation: 09/21/18 Date patient was last seen: 11/11/18 Number of treatments: 10 Number of cancellations/No shows: 4 INTERVENTIONS: Manual Therapy/STM/MET Strengthening/condition Ice/Heat Range of Motion Spinal Stabilization Work Hardening/Cond Stretching Iontophoresis Neuromuscular Re-ed Closed Chain Program Electrical Stim Posture/Body mechanics Home Exercise Program Therapeutic Activities GOALS: 3 weeks: Pt will demonstrate significant improvements in PROM-AAROM of B shoulder from baseline to full motion to improve function and QOL. 6 weeks: Pt will demonstrate significant improvements in AROM of B shoulder from baseline to full motion to improve function and QOL. 8 weeks: Pt will demonstrate significant improvement in B RTC and periscapular musculature from baseline to 4+/5 or greater to improve function and QOL. PATIENT'S GOAL: improve pain, be able to do pushups, sleep on shoulders, and have more free motion Status of Patient's Goals: Progressed Patient Compliance: Fair Prognosis: Good Reasons for continuing therapy: This is a progress note for Casey Guzman. Casye reports increased pain today. Patient has full PROM on the L shoulder and near full PROM R shoulder painful at end range flexion and abduction. He has progressed with B shoulder PROM-AROM; however, he continues to have a lot of pain with eccentric lowering. He reports that he is having surgery the end of November. Therefore, we will continue to improve PROM-AROM in B shoulders so that he can have a positive outcome following the surgical intervention. Posture: He demonstrates forward head, B rounded shoulders, increased thoracic kyphosis, and decreased lumbar lordosis. ROM: B shoulder AROM: R: flexion: 145, abduction: 170, ER: 53, IR: 69. L: 150, abduction: 145, ER: 35, IR: 85. PROM: L: flexion: 180, abduction: 180, ER: 90, IR: 90. R: flexion: 170, abduction: 170, ER: 90, IR: 90. Cervical AROM: R rotation: decreased and painful, L rotation: decreased and painful, extension: decreased and painful, flexion: normal with muscular end feel. R and L sidebending: decreased and painful, protrusion: normal and muscular end feel. RET: normal and muscular end feel. Strength: B shoulder flexion, abduction, scaption, IR, and ER: strong and painful. Palpation: TTP: anterior shoulder, AC joint, and lateral shoulder joint Special Tests: Repeated RET: increased pain during the test and better following the test with increased cervical AROM. Repeated RET with extension: increased pain during the test and better following the test with increased cervical AROM. Repeated flexion: increased pain during and worse following with decreased cervical AROM. Repeated IR: increased pain during the test and better following the test with increased B shoulder flexion and abduction AROM with decreased eccentric lowering pain. (+) for impingement in B shoulders with potential RTC and LHB involvement. Mobility: Independent If you have any questions, please contact me at [phone]. Thank you, Jluio Henry, PT, DPT [facility]
[2018-12-13] MEDS ORDERED: CHOL10005 PO (11:19)
[2018-12-13] MEDS ORDERED: CLON-327 PO (11:19)
[2018-12-13] MEDS ORDERED: INF100I IV (11:19)
[2018-12-13] MEDS ORDERED: METH2.5T43 PO (11:19)
[2018-12-13] MEDS ORDERED: ATOR40TA69 PO (11:19)
[2018-12-13] MEDS ORDERED: METF-450 PO (11:19)
[2018-12-13] MEDS ORDERED: [UNRECOGNIZED DRUG - CODE] IH (11:19)
[2018-12-13] MEDS ORDERED: FOLI-68 PO (11:19)
[2018-12-13] MEDS ORDERED: BUPR-124 PO (11:19)
[2018-12-13] MEDS ORDERED: LOSA25TA57 PO (11:19)
[2018-12-13] MEDS ORDERED: LEVO50TA86 PO (11:19)
[2018-12-13] MEDS ORDERED: CYCL10TA29 PO (11:19)
[2018-12-13] MEDS ORDERED: GABA-549 PO (11:19)
[2018-12-13] MEDS ORDERED: IPRA3AMP10 IH (11:19)
[2018-12-13] MEDS ORDERED: ASPI81TA94 PO (11:19)
[2018-12-13] MEDS ORDERED: TADA5TAB7 PO (11:19)
[2018-12-13] MEDS ORDERED: TIO18R INH (11:19)
== END 2018-12-20 ==
LOC: PT 10:30
PROVIDERS: ATTEND Orthopaedic Surgery
DX: M75.41 Impingement syndrome of right shoulder (principal); M75.42 Impingement syndrome of left shoulder; M19.019 Primary osteoarthritis, unspecified shoulder
CPT/HCPCS: 97163

== ENCOUNTER → 2018-12-08 | Outpatient (CLI) | payer MEDICARE, MEDICAID ==
[2014-05-05 12:15] VITALS: BMI 21.9
== END ==
LOC: LAB 11:08
PROVIDERS: ATTEND Nurse Practitioner Family
DX: E78.5 Hyperlipidemia, unspecified (principal); E03.9 Hypothyroidism, unspecified
CPT/HCPCS: 36415; 82465; 83718; 84443; 84478

== ENCOUNTER 2018-12-10 11:14 | Outpatient (RCR) | payer MEDICARE, MEDICAID ==
[2014-05-05 12:15] VITALS: BMI 21.9
[2018-12-13] MEDS ORDERED: LIDOCAINE/SOD BICARB 8.4% SYR ID PRN (06:55)
[2018-12-13] MEDS ORDERED: NS(*) 0.9% 100 ML BAG 100 ML IVPB PRN (06:55)
[2018-12-13] MEDS ORDERED: DEXTROSE 5%(*) 100 ML BAG 100 ML IVPB PRN (06:55)
[2018-12-13] MEDS ORDERED: METF-450 PO (11:19)
[2018-12-13] MEDS ORDERED: INF100I IV (11:19)
[2018-12-13] MEDS ORDERED: LEVO50TA86 PO (11:19)
[2018-12-13] MEDS ORDERED: FOLI-68 PO (11:19)
[2018-12-13] MEDS ORDERED: LOSA25TA57 PO (11:19)
[2018-12-13] MEDS ORDERED: TADA5TAB7 PO (11:19)
[2018-12-13] MEDS ORDERED: METH2.5T43 PO (11:19)
[2018-12-13] MEDS ORDERED: BUPR-124 PO (11:19)
[2018-12-13] MEDS ORDERED: CYCL10TA29 PO (11:19)
[2018-12-13] MEDS ORDERED: ATOR40TA69 PO (11:19)
[2018-12-13] MEDS ORDERED: TIO18R INH (11:19)
[2018-12-13] MEDS ORDERED: CHOL10005 PO (11:19)
[2018-12-13] MEDS ORDERED: IPRA3AMP10 IH (11:19)
[2018-12-13] MEDS ORDERED: CLON-327 PO (11:19)
[2018-12-13] MEDS ORDERED: ASPI81TA94 PO (11:19)
[2018-12-13] MEDS ORDERED: [UNRECOGNIZED DRUG - CODE] IH (11:19)
[2018-12-13] MEDS ORDERED: GABA-549 PO (11:19)
== END 2018-12-13 08:50 | disposition home or self-care (01) ==
LOC: SPU 11:14
PROVIDERS: ATTEND Internal Medicine Rheumatology
DX: Z02.9 Encounter for administrative examinations, unspecified (principal)

== ENCOUNTER 2018-12-27 10:48 | Emergency (ER) | payer MEDICARE, MEDICAID ==
[2014-05-05 12:15] VITALS: Wt 88.5 kg
[~2018-12-27 10:48] MED LIST changes: +ASPI81TA94 PO; +ATOR40TA69 PO; +BUPR-124 PO; +CHOL10005 PO; +CLON-327 PO; +CYCL10TA29 PO; +GABA-549 PO; +INF100I IV; +IPRA3AMP10 IH; +LEVO50TA86 PO; +LOSA25TA57 PO; +METF-450 PO; +METH2.5T43 PO; +TADA5TAB7 PO; +TIO18R INH; +[UNRECOGNIZED DRUG - CODE] IH
--- NOTE | 2018-12-27 10:54 | ER Report ---
History and Physical Time Seen By MD: 10:54 HPI/ROS CHIEF COMPLAINT: intractable vomiting HISTORY OF PRESENT ILLNESS: This is a 58 year old male. Complains of intractable vomiting, starting yesterday evening. Had Zofran, but still with vomiting. Abdominal pain, central abdomen. Did have two beers yesterday, no bad food exposure that he is aware of. No sick contacts. He denies fevers or chills. Not keeping fluids down and feeling dehydrated. He has no shortness of breath. Allergies: Coded Allergies: No Known Drug Allergies (Verified , 03/25/14) Uncoded Allergies: tijer[place] peppers (Adverse Reaction, Mild, GI DISTRESS, 01/25/10) Tijer[place] peppers only. Other types of peppers OK. Home Meds Active Scripts Promethazine Hcl (PROMETHAZINE HCL) 25 Mg Tablet, 25 MG PO Q8H PRN for NAUSEA/VOMITING, #20 TAB 0 Refills Prov:HARRY CAMILO MD 12/27/18 Ondansetron 4 Mg Odt (ONDANSETRON 4 MG ODT) 4 Mg Tab.rapdis, 4 MG PO Q6H PRN for NAUSEA/VOMITING, #20 TAB 0 Refills Prov:HARRY CAMILO MD 12/27/18 Tamoxifen Citrate (TAMOXIFEN CITRATE) 10 Mg Tablet, 10 MG PO BID, #60 TAB 0 Refills Prov:HARRY CAMILO MD 12/27/18 Prednisone (PREDNISONE) 20 Mg Tablet, 40 MG PO QDAY, #60 TAB 0 Refills Prov:HARRY CAMILO MD 12/27/18 Reported Medications Metformin Hcl (METFORMIN HCL) 500 Mg Tablet, 1 TAB PO QDAY, TAB 12/13/18 Clonidine Hcl (CLONIDINE HCL) 0.1 Mg Tablet, 0.1 MG PO BID, TAB 12/13/18 Gabapentin (GABAPENTIN) 300 Mg Capsule, 300 MG PO BID, CAPSULE 12/13/18 Cyclobenzaprine Hcl (CYCLOBENZAPRINE HCL) 10 Mg Tablet, 10 MG PO TID PRN for SPASMS, TAB 12/13/18 Cholecalciferol (Vitamin D3) (VITAMIN D3) 1,000 Unit Tablet, 1000 UNIT PO QDAY, TAB 12/13/18 Tiotropium Hailey (SPIRIVA) 18 Mcg/Cap Inh, 18 MCG INH QDAY, INH 12/13/18 Methotrexate Sodium (METHOTREXATE) 2.5 Mg Tablet, 15 MG PO QWEEK 12/13/18 Losartan Potassium (LOSARTAN POTASSIUM) 25 Mg Tablet, 25 MG PO QDAY 12/13/18 Levothyroxine Sodium (LEVOTHYROXINE SODIUM) 50 Mcg Tablet, 25 MCG PO QDAY, TAB 12/13/18 Ipratropium/Albuterol Sulfate (IPRAT-ALBUT 0.5-3(2.5) MG/3 ML) 3 Ml Ampul.neb, 3 ML IH QDAY PRN for WHEEZING 12/13/18 Folic Acid (FOLIC ACID) 1 Mg Tablet, 1 MG PO QDAY, TAB 12/13/18 Infliximab (REMICADE) 100 Mg Soln, 100 MG IV MONTHLY 12/13/18 Tadalafil (CIALIS) 5 Mg Tablet, 5 MG PO PRN 12/13/18 Bupropion Hcl (BUPROPION XL) 150 Mg Tab.er.24h, 150 MG PO QDAY, #10 TAB 12/13/18 Atorvastatin Calcium (ATORVASTATIN CALCIUM) 40 Mg Tablet, 1 TAB PO QDAY, TAB 12/13/18 Aspirin (ASPIRIN) 81 Mg Tab.chew, 81 MG PO QDAY, TAB.CHEW 12/13/18 Ciclesonide (ALVESCO) 6.1 Gm Hfa.aer.ad, 160 MCG IH BID 12/13/18 Albuterol Sulfate (Proair Hfa) 8.5 Gm Aer.w.adap, 8.5 GM IH PRN, 0 Refills 11/13/11 Reviewed Nurses Notes: Yes Hx Smoking: No (2 YEAR X 1-2 CIGS) Smoking Status: Former Smoker Exposure to Second Hand Smoke?: No Hx Substance Use Disorder: Yes (etoh dependence) Hx Alcohol Use: Yes Constitutional Vital Sign - Last 24 Hours 12/27/18 12/27/18 12/27/18 12/27/18 10:48 10:52 10:53 11:00 Temp 97.4 Pulse ??? 84 Resp 16 B/P (MAP) 145/100 145/100 (115) 141/106 (118) Pulse Ox 84 O2 Delivery Room Air 12/27/18 12/27/18 12/27/18 12/27/18 11:18 11:30 12:00 12:18 Pulse 77 80 B/P (MAP) 138/102 (114) 148/99 (115) Pulse Ox 98 96 O2 Delivery Nasal Cannula O2 Flow Rate 3 Physical Exam General Appearance: The patient is alert. No acute distress. Eyes: Pupils are equal, round. No pallor, injection or icterus. ENT: Mucous membranes are moist. Normal oral mucosa. Posterior oropharynx is normal. Normal nasal mucosa. Normal tympanic membranes and canals. Neck: Supple and non tender. Respiratory: Lungs are clear to auscultation. There are no retractions or accessory muscle use. Cardiovascular: Regular rate and rhythm. No murmurs, gallops or rubs. Normal capillary refill. Gastrointestinal: Abdomen is soft, diffuse discomfort with periumbilical tenderness. Nondistended. Guarding, but no rebound. No masses or organomegaly. Normal active bowel sounds. No costovertebral angle tenderness with percussion. Neurological: Alert and oriented x3. No focal neurologic deficits Skin: Warm and dry. Musculoskeletal: Extremities are nontender. DIFFERENTIAL DIAGNOSIS: After history and physical exam, differential diagnosis was considered for abdominal pain including but not limited to appendicitis, pancreatitis, gastroenteritis, coliits, gastritis and urinary tract problems. Medical Decision Making Data Points Result Diagram: 12/27/18 1110 12/27/18 1110 Laboratory Hematology Test 12/27/18 00:00 12/27/18 11:10 12/27/18 12:22 Erythrocyte Sedimentation Rate 4 mm/HOUR (0-20) C-Reactive Protein 0.7 mg/dl (<1.0) Red Blood Count 5.40 M/uL (4.00-5.60) Mean Corpuscular Volume 89.4 fL (80.0-96.0) Mean Corpuscular Hemoglobin 31.9 pg (26.0-33.0) Mean Corpuscular Hemoglobin Concent 35.7 g/dL (32.0-36.0) Red Cell Distribution Width 12.9 % (11.5-14.5) Mean Platelet Volume 7.2 fL (7.2-11.1) Neutrophils (%) (Auto) 73.5 % (39.4-72.5) Lymphocytes (%) (Auto) 15.9 % (17.6-49.6) Monocytes (%) (Auto) 8.3 % (4.1-12.4) Eosinophils (%) (Auto) 1.5 % (0.4-6.7) Basophils (%) (Auto) 0.8 % (0.3-1.4) Nucleated RBC Relative Count (auto) 0.1 /100WBC Neutrophils # (Auto) 5.0 K/uL (2.0-7.4) Lymphocytes # (Auto) 1.1 K/uL (1.3-3.6) Monocytes # (Auto) 0.6 K/uL (0.3-1.0) Eosinophils # (Auto) 0.1 K/uL (0.0-0.5) Basophils # (Auto) 0.1 K/uL (0.0-0.1) Nucleated RBC Absolute Count (auto) 0.01 K/uL Sodium Level 133 mmol/L (137-145) Potassium Level 4.1 mmol/L (3.5-5.0) Chloride Level 102 mmol/L (98-107) Carbon Dioxide Level 25 mmol/L (22-30) Blood Urea Nitrogen 10 mg/dl (9-21) Creatinine 0.60 mg/dl (0.66-1.25) Glomerular Filtration Rate Calc > 60.0 Random Glucose 197 mg/dl (75-110) Calcium Level 9.0 mg/dl (8.4-10.2) Total Bilirubin 1.0 mg/dl (0.2-1.3) Aspartate Amino Transf (AST/SGOT) 32 U/L (0-35) Alanine Aminotransferase (ALT/SGPT) 47 U/L (0-56) Alkaline Phosphatase 106 U/L (0-126) Total Protein 7.2 g/dl (6.3-8.2) Albumin 4.0 g/dl (3.5-5.0) Amylase Level 56 U/L (0-110) Lipase 45 U/L (23-300) Acetone, Qualitative Negative Urine Color Straw Urine Clarity Clear Urine pH 6.0 pH (4.8-9.5) Urine Specific [place] 1.020 Urine Protein Negative mg/dL (NEGATIVE) Urine Glucose (UA) 50 mg/dL (NEGATIVE) Urine Ketones Negative mg/dL (NEGATIVE) Urine Blood Negative (NEGATIVE) Urine Nitrite Negative (NEGATIVE) Urine Bilirubin Negative (NEGATIVE) Urine Urobilinogen Negative mg/dL (0.2-1.9) Urine Leukocyte Esterase Negative (NEGATIVE) Urine RBC None /HPF (0-2/HPF) Urine WBC <1 /HPF (0-5/HPF) Urine Squamous Epithelial Cells None /LPF (</=FEW) Urine Bacteria Negative /HPF (NONE-FEW) Urine Mucus None /HPF (NONE-FEW) Chemistry Test 12/27/18 00:00 12/27/18 11:10 12/27/18 12:22 Erythrocyte Sedimentation Rate 4 mm/HOUR (0-20) C-Reactive Protein 0.7 mg/dl (<1.0) White Blood Count 6.9 k/uL (4.5-11.0) Red Blood Count 5.40 M/uL (4.00-5.60) Hemoglobin 17.2 g/dL (14.0-18.0) Hematocrit 48.2 % (42.0-52.0) Mean Corpuscular Volume 89.4 fL (80.0-96.0) Mean Corpuscular Hemoglobin 31.9 pg (26.0-33.0) Mean Corpuscular Hemoglobin Concent 35.7 g/dL (32.0-36.0) Red Cell Distribution Width 12.9 % (11.5-14.5) Platelet Count 190 K/uL (150-450) Mean Platelet Volume 7.2 fL (7.2-11.1) Neutrophils (%) (Auto) 73.5 % (39.4-72.5) Lymphocytes (%) (Auto) 15.9 % (17.6-49.6) Monocytes (%) (Auto) 8.3 % (4.1-12.4) Eosinophils (%) (Auto) 1.5 % (0.4-6.7) Basophils (%) (Auto) 0.8 % (0.3-1.4) Nucleated RBC Relative Count (auto) 0.1 /100WBC Neutrophils # (Auto) 5.0 K/uL (2.0-7.4) Lymphocytes # (Auto) 1.1 K/uL (1.3-3.6) Monocytes # (Auto) 0.6 K/uL (0.3-1.0) Eosinophils # (Auto) 0.1 K/uL (0.0-0.5) Basophils # (Auto) 0.1 K/uL (0.0-0.1) Nucleated RBC Absolute Count (auto) 0.01 K/uL Glomerular Filtration Rate Calc > 60.0 Calcium Level 9.0 mg/dl (8.4-10.2) Total Bilirubin 1.0 mg/dl (0.2-1.3) Aspartate Amino Transf (AST/SGOT) 32 U/L (0-35) Alanine Aminotransferase (ALT/SGPT) 47 U/L (0-56) Alkaline Phosphatase 106 U/L (0-126) Total Protein 7.2 g/dl (6.3-8.2) Albumin 4.0 g/dl (3.5-5.0) Amylase Level 56 U/L (0-110) Lipase 45 U/L (23-300) Acetone, Qualitative Negative Urine Color Straw Urine Clarity Clear Urine pH 6.0 pH (4.8-9.5) Urine Specific [place] 1.020 Urine Protein Negative mg/dL (NEGATIVE) Urine Glucose (UA) 50 mg/dL (NEGATIVE) Urine Ketones Negative mg/dL (NEGATIVE) Urine Blood Negative (NEGATIVE) Urine Nitrite Negative (NEGATIVE) Urine Bilirubin Negative (NEGATIVE) Urine Urobilinogen Negative mg/dL (0.2-1.9) Urine Leukocyte Esterase Negative (NEGATIVE) Urine RBC None /HPF (0-2/HPF) Urine WBC <1 /HPF (0-5/HPF) Urine Squamous Epithelial Cells None /LPF (</=FEW) Urine Bacteria Negative /HPF (NONE-FEW) Urine Mucus None /HPF (NONE-FEW) Toxicology Test 12/27/18 11:10 Acetone, Qualitative Negative Urinalysis Test 12/27/18 12:22 Urine Color Straw Urine Clarity Clear Urine pH 6.0 pH (4.8-9.5) Urine Specific [place] 1.020 Urine Protein Negative mg/dL (NEGATIVE) Urine Glucose (UA) 50 mg/dL (NEGATIVE) Urine Ketones Negative mg/dL (NEGATIVE) Urine Blood Negative (NEGATIVE) Urine Nitrite Negative (NEGATIVE) Urine Bilirubin Negative (NEGATIVE) Urine Urobilinogen Negative mg/dL (0.2-1.9) Urine Leukocyte Esterase Negative (NEGATIVE) Urine RBC None /HPF (0-2/HPF) Urine WBC <1 /HPF (0-5/HPF) Urine Squamous Epithelial Cells None /LPF (</=FEW) Urine Bacteria Negative /HPF (NONE-FEW) Urine Mucus None /HPF (NONE-FEW) EKG/Imaging Imaging CT ABDOMEN PELVIS W/ CON HISTORY: Abdominal pain TECHNIQUE: Axial images were obtained through the abdomen and pelvis with intravenous contrast . One of the following dose optimization techniques was utilized in the performance of this exam: automated exposure control; adjustment of the mA and/or kv according to patient size; or use of iterative reconstruction technique. Specific details can be referenced in the facility's radiology CT exam operational policy. CONTRAST: 75 mL of Isovue-370 COMPARISON: Noncontrast CT abdomen/pelvis 02/16/2014. FINDINGS: Visualized lung bases: Linear basilar opacities, with calcifications, unchanged Hepatobiliary: Negative. Spleen: Negative. Adrenals: Negative. Pancreas: Stable calcifications within the pancreatic head. Kidneys/ureters/bladder: Simple renal cysts measuring up to 1.2 cm. No hydronephrosis. Questionable mild thickening of the urinary bladder wall. Bowel/peritoneum/mesentery: Appendix is not seen. No bowel obstruction, free air or ascites. Mild stranding along the mesenteric root. Vessels: Mild arterial calcifications. Lymph nodes: Negative. Pelvic genitourinary: Negative. Bones/body wall: Scattered degenerative changes. Other findings: None significant IMPRESSION: 1. Mild stranding along the mesenteric root which can be seen with chronic sclerosing mesenteritis or more acute small bowel inflammatory process. 2. Questionable mild thickening of the urinary bladder wall. This could be from outlet obstruction or cystitis. Recommend correlation with urinalysis. Report Dictated By: Richardson Quintana MD at 12/27/2018 1:00 PM ED Course/Re-evaluation Clinical Indication for ER IV: Hydration, IV Access ED Course Patient treated with Promethazine, Fentanyl and a liter of normal saline. Chin[place] much better. Took oral broth and water without problems. CT shows signs of sclerosing mesenteritis. Discussed this with the patient. Started Prednisone and Tamiflu and referred to general surgery as an outpatient. Decision to Disposition Date: Dec 27, 2018 Decision to Disposition Time: 13:58 Depart Departure Latest Vital Signs Vital Signs Date Time Temp Pulse Resp B/P (MAP) Pulse Ox O2 Delivery O2 Flow Rate FiO2 12/27/18 12:18 80 96 12/27/18 12:00 148/99 (115) 12/27/18 11:18 Nasal Cannula 3 12/27/18 10:52 97.4 16 Impression: Primary Impression: Sclerosing mesenteritis Condition: Improved Disposition: HOME OR SELF-CARE Referrals: TAMMIE GONZALEZ LINE UP EXAMINER (PCP) New Scripts Promethazine Hcl (PROMETHAZINE HCL) 25 Mg Tablet 25 MG PO Q8H PRN for NAUSEA/VOMITING, #20 TAB 0 Refills Prov: HARRY CAMILO MD 12/27/18 Ondansetron 4 Mg Odt (ONDANSETRON 4 MG ODT) 4 Mg Tab.rapdis 4 MG PO Q6H PRN for NAUSEA/VOMITING, #20 TAB 0 Refills Prov: HARRY CAMILO MD 12/27/18 Tamoxifen Citrate (TAMOXIFEN CITRATE) 10 Mg Tablet 10 MG PO BID, #60 TAB 0 Refills Prov: HARRY CAMILO MD 12/27/18 Prednisone (PREDNISONE) 20 Mg Tablet 40 MG PO QDAY, #60 TAB 0 Refills Prov: HARRY CAMILO MD 12/27/18 Patient Instructions: Abdominal Pain (ED) Additional Instructions: You have an inflammatory condition in the tissues in your abdomen called the mesentery. These are the tissues around the bowel that connect them to the back wall of the abdomen. This condition is called Sclerosing Mesenteritis. We do not know why you have this inflammation. Further testing will need to be done by general surgery. In this condition, the recommendation is to start two medicines. Prednisone 20mg, 2 tablets once a day. Tamoxifen 10mg twice daily Please call Dr. Kirk's office later today to schedule an appointment with him for follow-up. He is a new general surgeon here in [facility]. Let Dr. Hays's office know that we needed to start you on Prednisone for this condition. Your shoulder surgery will likely need to be delayed until this new problem is fully worked up. HARRY CAMILO MD Dec 27, 2018 10:54
[2018-12-27] MEDS ORDERED: NS(*) 0.9% 1000 ML BAG 1,000 ML IV ONE (11:14)
[2018-12-27] MEDS ORDERED: fentaNYL CITR 100 MCG/2 ML AMP IVP ONE (11:15)
[2018-12-27] MEDS ORDERED: PROMETHAZINE 25 MG/ML 1 ML AMP IVP ONE (11:15)
[2018-12-27 11:23] LABS: PLATELET COUNT, AUTOMATED 190 K/uL (150-450)
[2018-12-27] MEDS ORDERED: PANTOPRAZOLE SOD 40 MG IV VIAL IVP ONE (11:25)
--- NOTE | 2018-12-27 13:15 | RADIOLOGY IMAGING REPORT ---
FACILITY: [facility] [place] PATIENT NAME: Casey Guzman : 1960 MR: [id number] V: [id number] EXAM DATE: ORDERING PHYSICIAN: HARRY CAMILO TECHNOLOGIST: Location: [facility] [place] Patient: Casey Guzman : 1960 Visit/Account:[id number] Date of Sevice: 12/27/2018 CT ABDOMEN PELVIS W/ CON HISTORY: Abdominal pain TECHNIQUE: Axial images were obtained through the abdomen and pelvis with intravenous contrast . One of the following dose optimization techniques was utilized in the performance of this exam: automate d exposure control; adjustment of the mA and/or kv according to patient size; or use of iterative rec onstruction technique. Specific details can be referenced in the facility's radiology CT exam operati onal policy. CONTRAST: 75 mL of Isovue-370 COMPARISON: Noncontrast CT abdomen/pelvis 02/16/2014. FINDINGS: Visualized lung bases: Linear basilar opacities, with calcifications, unchanged Hepatobiliary: Negative. Spleen: Negative. Adrenals: Negative. Pancreas: Stable calcifications within the pancreatic head. Kidneys/ureters/bladder: Simple renal cysts measuring up to 1.2 cm. No hydronephrosis. Questionabl e mild thickening of the urinary bladder wall. Bowel/peritoneum/mesentery: Appendix is not seen. No bowel obstruction, free air or ascites. Mild stranding along the mesenteric root. Vessels: Mild arterial calcifications. Lymph nodes: Negative. Pelvic genitourinary: Negative. Bones/body wall: Scattered degenerative changes. Other findings: None significant IMPRESSION: 1. Mild stranding along the mesenteric root which can be seen with chronic sclerosing mesenteritis o r more acute small bowel inflammatory process. 2. Questionable mild thickening of the urinary bladder wall. This could be from outlet obstruction or cystitis. Recommend correlation with urinalysis. Report Dictated By: Richardson Quintana MD at 12/27/2018 1:00 PM Report E-Signed By: Richardson Quintana MD at 12/27/2018 1:09 PM WSN:[id number]
[2018-12-27 13:30] VITALS: BP 136/97
[2018-12-27] MEDS ORDERED: TAMO10TA26 PO (14:07)
[2018-12-27] MEDS ORDERED: PRED20TA6 PO (14:07)
[2018-12-27] MEDS ORDERED: PROM-110 PO (14:08)
[2018-12-27] MEDS ORDERED: ONDA4TAB9 PO (14:08)
== END 2018-12-27 14:55 | disposition home or self-care (01) ==
LOC: ER 11:03
DX: K65.4 Sclerosing mesenteritis (principal)
CPT/HCPCS: 74177; 81001; 82009; 82150; 83690; 85025; 85651; 86140; 96361; 96374; 96375; 99284; C9113; J2550; J3010; J7030; 82040; 82247; 82310; 82374; 82435; 82565; 82947; 84075; 84132; 84155; 84295; 84450; 84460; 84520; Q9967

== ENCOUNTER 2019-01-17 01:54 | Observation (INO) | payer MEDICARE, MEDICAID ==
[2019-01-17] VITALS (17 sets, daily range): BP systolic 81–172; BP diastolic 69–91
[~2019-01-17] VITALS: Ht 170.2 cm; Wt 82.7 kg
[~2019-01-17 01:54] MED LIST changes: +CELECOXIB 200 MG CAP PO ONE; +FAMOTIDINE 20 MG TAB PO ONE; +LIDOCAINE/SOD BICARB 8.4% SYR ID ONE; +MIDAZOLAM 2 MG/2 ML VIAL IVP PRN; +NORMOSOL R SOLN(*) 1000 ML BAG 1,000 ML IV PRN; +ONDA4TAB9 PO; +TAMO10TA26 PO; +ceFAZolin(*) 2GM/D5W 50ML 50 ML IVPB ONE
[2019-01-17] MEDS ORDERED: MIDAZOLAM 2 MG/2 ML VIAL IVP PRN (06:30)
[2019-01-17] MEDS ORDERED: LIDOCAINE/SOD BICARB 8.4% SYR ID ONE (06:30)
[2019-01-17] MEDS ORDERED: NORMOSOL R SOLN(*) 1000 ML BAG 1,000 ML IV PRN ×2 (06:30→09:00)
[2019-01-17] MEDS ORDERED: ceFAZolin(*) 2GM/D5W 50ML 50 ML IVPB ONE (06:30)
[2019-01-17] MEDS ORDERED: FAMOTIDINE 20 MG TAB PO ONE (06:30)
[2019-01-17] MEDS ORDERED: CELECOXIB 200 MG CAP PO ONE (06:30)
[2019-01-17] MEDS ORDERED: ROPIVACAINE 0.2% 20 ML VIAL ONE (06:36)
[2019-01-17] MEDS ORDERED: ALBUTEROL/IPRATROPIUM 3 ML NEB NEB ONE (06:40)
[2019-01-17] MEDS ORDERED: ALBUTEROL/IPRATROPIUM 3 ML NEB ONE (06:46)
[2019-01-17] MEDS ORDERED: LABETALOL HCL 25 MG/5 ML SYRINGE ONE (07:39)
[2019-01-17] MEDS ORDERED: ONDANSETRON 4 MG/2 ML VIAL ONE (08:16)
[2019-01-17] MEDS ORDERED: SUCCINYLCHOL CHL 200MG/10ML VL ONE (08:16)
[2019-01-17] MEDS ORDERED: ROCURONIUM BROM 10 MG/ML 10 ML ONE (08:16)
[2019-01-17] MEDS ORDERED: DEXAMETHASONE SOD PHOS 10MG/ML ONE (08:16)
[2019-01-17] MEDS ORDERED: PROPOFOL EMUL(*) 10MG/ML 20 ML 20 ML ONE (08:16)
[2019-01-17] MEDS ORDERED: SUGAMMADEX SOD 200 MG/2 ML SDV ONE (08:21)
[2019-01-17] MEDS ORDERED: fentaNYL CITR 100 MCG/2 ML AMP ONE (08:50)
[2019-01-17] MEDS ORDERED: FLUSH 10 ML SYR IVP PRN (09:00)
[2019-01-17] MEDS ORDERED: ONDANSETRON 4 MG/2 ML VIAL IVP PRN (09:00)
[2019-01-17] MEDS ORDERED: ACETAMINOPHEN 500 MG TAB PO SCH (09:00)
[2019-01-17] MEDS ORDERED: PROMETHAZINE 25 MG/ML 1 ML AMP IVP PRN (09:00)
[2019-01-17] MEDS ORDERED: BISACODYL 10 MG SUPP PR PRN (09:00)
[2019-01-17] MEDS ORDERED: oxyCODONE HCL 5 MG CAP PO PRN (09:00)
[2019-01-17] MEDS ORDERED: MAGNESIUM HYDROXIDE* 30ML UDCP PO PRN (09:00)
[2019-01-17] MEDS ORDERED: ceFAZolin(*) 1 GM VIAL 1 GM in NS(*) 0.9% 100 ML ADDVANT BAG 100 ML IVPB SCH (09:00)
--- NOTE | 2019-01-17 09:12 | OPERATIVE REPORT 1 ---
EVENT DATE: January 17, 2019 SURGEON: Fady Hays MD ANESTHESIOLOGIST: Burak Peterson MD ANESTHESIA: Interscalene block followed by general. CENTRAL CONTROL ROOM OPERATOR: David Parsons PA-C PREOPERATIVE DIAGNOSIS Right shoulder impingement syndrome with possible partial thickness rotator cuff tear. POSTOPERATIVE DIAGNOSIS Right shoulder impingement syndrome with partial thickness tear of the supraspinatus tendon, intra-articular biceps tendinopathy involving greater than 50% of the tendon, anterior inferior and posterior inferior labral degenerative tearing and chondromalacia, high grade 2, of the humeral head. PROCEDURE PERFORMED Right shoulder arthroscopy with debridement of biceps tendon followed by biceps release, debridement of labrum, debridement of chondromalacia, debridement of rotator cuff partial thickness tear of the supraspinatus, subacromial decompression and clavicle resection of 7-10 mm. DESCRIPTION OF PROCEDURE The patient was brought to the OR after receiving appropriate preoperative antibiotic and Dr. Peterson performed right interscalene block followed by general anesthesia. The patient was placed in the left lateral decubitus position, right shoulder up with appropriate padding and positioners. The right shoulder was then prepped and draped in the usual sterile fashion, placed in 12 pounds of traction and abduction. Through a posterior approach, we injected the shoulder with arthroscopic fluid. We then established a posterior portal, placed the scope and through and outside-in technique. I established an anterior portal. There was generalized synovitis and hyperemia. This was coagulated for better visualization. Subscap was intact. There was significant biceps tearing starting as it came into the joint to its insertion. Anterior inferiorly and posterior inferiorly there was labral degenerative tearing. There was some mild grade 2 chondromalacia of the humeral head. There were no loose bodies in the axillary pouch. Teres minor and infraspinatus appear to be grossly intact. The anterior third to one-half of the supraspinatus showed a partial thickness tear. Jo Ann inserted. Labrum was debrided as well as chondromalacia of the head. Biceps was debrided and this involved greater than 50% of the tendon volume so this was released with a surface strap device. Rotator cuff injury was then debrided down to a stable base. This involved less than 50% of the tendon and it did involve very little of the insertion. This was marked, anterior third to one-half, with a PDS suture. The scope was then placed in the posterior portal of the subacromial space and under needle localization we established a lateral portal. We noted significant hyperemia and bursal reaction. This was partially debrided with a surface strap device and a shaver. There was significant CA ligament abrasion. Anterior third of the undersurface of the acromion was debrided of soft tissue with surface strap device and the CA ligament was released. We debrided bursa reaction in the area of the cuff and noted that the bursal side of the area of interest where we had marked was intact but more posterior to this was another partial thickness tear of the posterior third of the half to third of the supraspinatus. This was debrided and this involved less than 25% of the tendon depth. A bur was then placed and SAD was performed starting at 5 mm anteriorly, doubling to the junction of the anterior medial thirds in 90/90 technique. The distal end of the clavicle was then evaluated after removing the soft tissue with the surface strap device and we noted it was fairly tight with arthritic changes and calcification of inferior prominence and distal clavicle resection of 7-10 mm was performed through the anterior portal with our bur. Instrumentation was removed. Portals were closed subcutaneously with 4-0 Monocryl followed by Steri-Strips. Injections of the portals of the subacromial space with ropivacaine followed by compressive dressing. The patient was extubated and taken to recovery in stable condition. He will be admitted overnight for medical issues. We will start protocol therapy. Tylenol, Toradol, Tramadol and OxyIR will be prescribed for pain. GALE
[2019-01-17] MEDS: KETOROLAC TROM 10MG TAB PO PRN ×2 (10:35→21:02)
[2019-01-17] MEDS: ACETAMINOPHEN 500 MG TAB PO SCH ×2 (11:16→21:03)
[2019-01-17] MEDS ORDERED: KET10 PO (11:25)
[2019-01-17] MEDS ORDERED: TRAM-420 PO (11:25)
[2019-01-17] MEDS ORDERED: OXYC5CAP21 PO (11:34)
[2019-01-17] MEDS ORDERED: DIAZEPAM 10 MG TAB PO PRN ×2 (11:50)
[2019-01-17] MEDS ORDERED: INSULIN HUM LISPRO 100 UN/ML 3 ML VIAL SUBQ PRN (12:00)
[2019-01-17] MEDS ORDERED: ALBUTEROL 8 GM INHALER INH PRN (12:20)
--- NOTE | 2019-01-17 12:32 | Hospitalist Consultation ---
History of Present Illness Requesting Physician Dr. Hays Reason for Consult Medical Management Chief Complaint s/p right shoulder scope History of Present Illness He was admitted s/p right shoulder scope. It is reported the surgery went well and without complication. History Problems: (1) Asthma Status: Chronic (2) Depression Status: Chronic (3) Hypertension Status: Chronic (4) Hypothyroidism Status: Chronic (5) Type 2 diabetes mellitus Status: Chronic (6) Alcohol abuse (7) Rheumatoid arthritis Status: Chronic Home Meds Active Scripts Promethazine Hcl (PROMETHAZINE HCL) 25 Mg Tablet, 25 MG PO Q8H PRN for NAUSEA/VOMITING, #20 TAB 0 Refills Prov:HARRY CAMILO MD 12/27/18 Ondansetron 4 Mg Odt (ONDANSETRON 4 MG ODT) 4 Mg Tab.rapdis, 4 MG PO Q6H PRN for NAUSEA/VOMITING, #20 TAB 0 Refills Prov:HARRY CAMILO MD 12/27/18 Tamoxifen Citrate (TAMOXIFEN CITRATE) 10 Mg Tablet, 10 MG PO BID, #60 TAB 0 Refills Prov:HARRY CAMILO MD 12/27/18 Reported Medications Oxycodone Hcl (OXYCODONE HCL) 5 Mg Capsule, 5 MG PO Q4-6H PRN for PAIN, #18 CAPSULE 01/17/19 Tramadol Hcl (TRAMADOL HCL) 50 Mg Tablet, 1-2 TAB PO Q6H PRN for PAIN, #20 TAB 01/17/19 Ketorolac Tromethamine (KETOROLAC TROMETHAMINE) 10 Mg Tab, 10 MG PO Q8H PRN for PAIN, #10 TAB 01/17/19 Metformin Hcl (METFORMIN HCL) 500 Mg Tablet, 1 TAB PO QDAY, TAB 12/13/18 Clonidine Hcl (CLONIDINE HCL) 0.1 Mg Tablet, 0.1 MG PO BID, TAB 12/13/18 Gabapentin (GABAPENTIN) 300 Mg Capsule, 300 MG PO BID, CAPSULE 12/13/18 Cyclobenzaprine Hcl (CYCLOBENZAPRINE HCL) 10 Mg Tablet, 10 MG PO TID PRN for SPASMS, TAB 12/13/18 Cholecalciferol (Vitamin D3) (VITAMIN D3) 1,000 Unit Tablet, 1000 UNIT PO QDAY, TAB 12/13/18 Tiotropium [place] (SPIRIVA) 18 Mcg/Cap Inh, 18 MCG INH QDAY, INH 12/13/18 Methotrexate Sodium (METHOTREXATE) 2.5 Mg Tablet, 15 MG PO QWEEK 12/13/18 Losartan Potassium (LOSARTAN POTASSIUM) 25 Mg Tablet, 25 MG PO QDAY 12/13/18 Levothyroxine Sodium (LEVOTHYROXINE SODIUM) 50 Mcg Tablet, 25 MCG PO QDAY, TAB 12/13/18 Ipratropium/Albuterol Sulfate (IPRAT-ALBUT 0.5-3(2.5) MG/3 ML) 3 Ml Ampul.neb, 3 ML IH QDAY PRN for WHEEZING 12/13/18 Folic Acid (FOLIC ACID) 1 Mg Tablet, 1 MG PO QDAY, TAB 12/13/18 Infliximab (REMICADE) 100 Mg Soln, 100 MG IV MONTHLY 12/13/18 Tadalafil (CIALIS) 5 Mg Tablet, 5 MG PO PRN 12/13/18 Bupropion Hcl (BUPROPION XL) 150 Mg Tab.er.24h, 150 MG PO QDAY, #10 TAB 12/13/18 Atorvastatin Calcium (ATORVASTATIN CALCIUM) 40 Mg Tablet, 1 TAB PO QDAY, TAB 12/13/18 Aspirin (ASPIRIN) 81 Mg Tab.chew, 81 MG PO QDAY, TAB.CHEW 12/13/18 Ciclesonide (ALVESCO) 6.1 Gm Hfa.aer.ad, 160 MCG IH BID 12/13/18 Albuterol Sulfate (Proair Hfa) 8.5 Gm Aer.w.adap, 8.5 GM IH PRN, 0 Refills 11/13/11 Discontinued Scripts Prednisone (PREDNISONE) 20 Mg Tablet, 40 MG PO QDAY, #60 TAB 0 Refills Prov:HARRY CAMILO MD 12/27/18 Allergies: Coded Allergies: No Known Drug Allergies (Verified , 03/25/14) Uncoded Allergies: t[place] peppers (Adverse Reaction, Mild, GI DISTRESS, 01/25/10) [place] peppers only. Other types of peppers OK. Patient History: FH: asthma FATHER, , Age:77 FH: diabetes mellitus MOTHER, Age:85 High blood pressure FATHER, , Age:77 Hx Smoking: No (2 YEAR X 1-2 CIGS) Smoking Status: Current: Some Days Smoker Exposure to Second Hand Smoke?: No Caffeine Intake: Coffee Caffeine/Cups Per Day: 4 CUPS Hx Alcohol Use: Yes (pt states he had 2 beers and 1 shot at 1800 01/16/19) When Quit Alcohol?: SOBER SINCE 2013 Hx Substance Use Disorder: No (MARIJUANA FORMER ) Social Drug Use: Former Social Drugs: Marijuana Amount Of Social Drug/s Used: THINKS HE HAD SOME THIS PAST WEEK Review of Systems All Systems Reviewed/Normal: Yes, Except as Noted Exam Vital Signs Vital Signs Date Time Temp Pulse Resp B/P (MAP) Pulse Ox O2 Delivery O2 Flow Rate FiO2 01/17/19 10:08 98.0 68 16 92/70 (77) 93 Nasal Cannula 2.0 General Appearance: Alert, Awake, No Acute Distress, Afebrile Neuro: No Gross deficits Cardiovascular: Regular Rate and Rhythm Respiratory: No Respiratory Distress, Clear to Auscultation Psych: Alert & Oriented X3, Appropriate Mood & Affect Assessment and Plan Problems: (1) S/P arthroscopy of right shoulder Status: Acute Assessment & Plan: Followed by Dr. Hays. (2) Hypertension Status: Chronic Assessment & Plan: He is on chronic treatment with Losartan and Clonidine. The losartan was started with hold parameters. (3) Type 2 diabetes mellitus Status: Chronic Assessment & Plan: He is on chronic treatment with Metformin. This will be held. He will be placed on AC/HS blood glucose checks and SS insulin #1. (4) Asthma Status: Chronic Assessment & Plan: He is on chronic treatment with Spiriva and Alvesco inhalers. Continue. (5) Hypothyroidism Status: Chronic Assessment & Plan: He is on chronic treatment with Levothyroxine. Continue. (6) Depression Status: Chronic Assessment & Plan: He is on chronic treatment with Wellbutrin. Continue. (7) Rheumatoid arthritis Status: Chronic Assessment & Plan: He is on chronic treatment with Remicade infusions, as well as prednisone. He did stop both medications 3 weeks ago in anticipation of surgery. (8) Alcohol abuse Assessment & Plan: He reports long history of alcohol abuse. His last drink was last night (beer and shots). He will be placed on CIWA. 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 Valium is ordered if needed. Venous Thromboembolism Antithrombotics Is Pt On Any Antithrombotics?: No Problem Qualifiers (1) Hypertension: Hypertension type: essential hypertension Qualified Codes: I10 - Essential (primary) hypertension KENNY HERNANDEZ LATHE SCALPER OPERATOR Jan 17, 2019 12:32
[2019-01-17] MEDS: ceFAZolin(*) 1 GM VIAL 1 GM in NS(*) 0.9% 100 ML ADDVANT BAG 100 ML IVPB SCH ×2 (14:46→23:09)
[2019-01-17] MEDS: traMADol 50 MG TAB PO PRN ×2 (14:49→23:12)
[2019-01-17] MEDS ORDERED: NS(*) 0.9% 250 ML BAG 250 ML ONE (15:14)
--- NOTE | 2019-01-17 16:49 | NUR ---
Occupational Therapy Impression OT attending to pt call light. Pt alert and agreeable to OT evaluation. Requesting use of urinal at this time. SBA use of urinal at bedside. Pt drowsy, declining further intervention. Reporting pain at 6/10, ice applied, positioning offered. Nursing informed. VSS throughout. Nerve block intact, AROM of thumb only. Plan for discharge home when medically appropriate. Occupational Therapy Goals Patient's Goal
[2019-01-17] MEDS: INSULIN HUM LISPRO 100 UN/ML 3 ML VIAL SUBQ PRN ×2 (17:20→21:28)
[2019-01-17] MEDS ORDERED: CICLESONIDE 160 MCG SCH (18:00)
[2019-01-17] MEDS ORDERED: METF-407 PO (20:09)
[2019-01-17] MEDS ORDERED: BUPR-126 PO (20:09)
[2019-01-17] MEDS ORDERED: CICL6.1H7 IH (20:09)
[2019-01-17] MEDS ORDERED: LEVO25TA57 PO (20:09)
[2019-01-17] MEDS ORDERED: TADA2.5T3 PO (20:09)
[2019-01-18 03:00] VITALS: BP 128/74
[2019-01-18] MEDS: ACETAMINOPHEN 500 MG TAB PO SCH (03:06)
[2019-01-18] MEDS: traMADol 50 MG TAB PO PRN (05:13)
[2019-01-18] MEDS: ceFAZolin(*) 1 GM VIAL 1 GM in NS(*) 0.9% 100 ML ADDVANT BAG 100 ML IVPB SCH (06:17)
[2019-01-18 06:39] VITALS: BP 125/83
[2019-01-18 07:50] VITALS: BP 130/80
[2019-01-18] MEDS: KETOROLAC TROM 10MG TAB PO PRN (08:51)
[2019-01-18] MEDS: INSULIN HUM LISPRO 100 UN/ML 3 ML VIAL SUBQ PRN (08:52)
[2019-01-18] MEDS ORDERED: metFORMIN HCL XR 500 MG TABCR PO SCH (09:00)
[2019-01-18] MEDS ORDERED: THIAMINE HCL 100 MG TAB PO SCH (09:00)
[2019-01-18] MEDS ORDERED: FOLIC ACID 1 MG TAB PO SCH (09:00)
[2019-01-18] MEDS ORDERED: buPROPion XL 150 MG TABCR PO SCH (09:00)
[2019-01-18] MEDS ORDERED: LOSARTAN POTASSIUM 50 MG TAB PO SCH (09:00)
[2019-01-18] MEDS ORDERED: TIOTROPIUM BROM INH 18 MCG/CAP INH SCH (09:00)
[2019-01-18] MEDS ORDERED: LEVOTHYROXINE SOD 0.025 MG TAB PO SCH (09:00)
[2019-01-18] MEDS ORDERED: ATORVASTATIN 40 MG TAB PO SCH (09:00)
--- NOTE | 2019-01-18 09:56 | NUR ---
Occupational Therapy Impression Pt alert and agreeable to OT tx. Reports plans for discharge home today with no concerns/questions. Appropriate assist from family/friends. Reviewed fit of sling/ADLs. Pt reports PA discharged pt this AM and informed him to complete pendulums and f/u in Dr. Hays's office. Precautions in chart include WBAT/ROM. Hand/wrist AROM demonstrated. No orders for outpatient PT in hard chart-call placed to Dr. Hays's office to ensure protocol and f/u directions. Voicemail left. Mod (I) bed mobility. Pt sleeps in recliner at home. SBA ambulation in room with no AD. Min A UB/LB dressing. SBA toileting. SpO2 >90% on 1L. Pt c/ines headache, returned to supine in bed. VSS throughout tx. Pt ready for discharge when medically appropriate. Pt declining further needs. Occupational Therapy Goals Patient's Goal
[2019-01-18 10:27] VITALS: Ht 170.2 cm; Wt 82.7 kg
--- NOTE | 2019-01-18 10:48 | Hospitalist Progress Note ---
Subjective Progress Notes Subjective He was admitted after shoulder scope. He has no complaints this morning. He would like to go home. Patient Complains of: Cardiovascular: No: Chest Pain Respiratory: No: Shortness of Breath Physical Exam Vital Signs Date Time Temp Pulse Resp B/P (MAP) Pulse Ox O2 Delivery O2 Flow Rate FiO2 01/18/19 07:58 90 Room Air 01/18/19 07:50 97.8 74 18 130/80 (97) 01/18/19 06:39 0.5 Intake and Output 01/18/19 07:00 Intake Total 4411 ml Output Total 4120 ml Balance 291 ml Intake Oral 2311 ml IV Total 1100 ml Other 1000 ml Output Urine Total 4120 ml # Voids 4 General Appearance: Alert, Awake, No Acute Distress, Afebrile Neuro: No Gross deficits Cardiovascular: Regular Rate and Rhythm Respiratory: No Respiratory Distress, Clear to Auscultation GI: Soft and Non-Tender Psych: Alert & Oriented X3, Appropriate Mood & Affect Assessment and Plan Problems: (1) S/P arthroscopy of right shoulder Status: Acute Assessment & Plan: Followed by Dr. Hays. (2) Hypertension Status: Chronic Assessment & Plan: He is on chronic treatment with Losartan and Clonidine. The losartan was started with hold parameters. He will resume Clonidine tomorrow. (3) Type 2 diabetes mellitus Status: Chronic Assessment & Plan: He is on chronic treatment with Metformin. This will be held. He will be placed on AC/HS blood glucose checks and SS insulin #1. (4) Asthma Status: Chronic Assessment & Plan: He is on chronic treatment with Spiriva and Alvesco inhalers. Continue. (5) Hypothyroidism Status: Chronic Assessment & Plan: He is on chronic treatment with Levothyroxine. Continue. (6) Depression Status: Chronic Assessment & Plan: He is on chronic treatment with Wellbutrin. Continue. (7) Rheumatoid arthritis Status: Chronic Assessment & Plan: He is on chronic treatment with Remicade infusions, as well as prednisone. He did stop both medications 3 weeks ago in anticipation of surgery. He will hold Remicade until approval to restart. (8) Alcohol abuse Assessment & Plan: He reports long history of alcohol abuse. His last drink was last night (beer and shots). He will be placed on CIWA. 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 Valium is ordered if needed. He did not require any medication for withdraw. Exam Sepsis Risk: No Definite Risk Problem Qualifiers (1) Hypertension: Hypertension type: essential hypertension Qualified Codes: I10 - Essential (primary) hypertension KENNY HERNANDEZ Jan 18, 2019 10:48
== END 2019-01-18 07:31 | disposition home or self-care (01) ==
LOC: OR 01:54 → MED 10:05
PROVIDERS: ADMIT Orthopaedic Surgery; ATTEND Orthopaedic Surgery
DX: M75.111 Incomplete rotator cuff tear or rupture of right shoulder, not specified as traumatic (principal); M75.41 Impingement syndrome of right shoulder; E11.9 Type 2 diabetes mellitus without complications; G47.33 Obstructive sleep apnea (adult) (pediatric); J45.909 Unspecified asthma, uncomplicated
CPT/HCPCS: 29827; 36415; 36416; 82948; 94640; 96372; 97165; 97535; A4565; A9270; G0378; G0480; J0330; J0690; J1100; J1815; J2250; J2405; J2704; J2795; J3010; J3535; J7050; J7620; 80320

== ENCOUNTER → 2019-01-31 | Outpatient (CLI) | payer MEDICARE, MEDICAID ==
[2019-01-18 10:27] VITALS: BMI 28.5
[~2019-01-31] MED LIST changes: +BUPR-126 PO; -CELECOXIB 200 MG CAP PO ONE; +CICL6.1H7 IH; -FAMOTIDINE 20 MG TAB PO ONE; +KET10 PO; +LEVO25TA57 PO; -LIDOCAINE/SOD BICARB 8.4% SYR ID ONE; +METF-407 PO; -MIDAZOLAM 2 MG/2 ML VIAL IVP PRN; -NORMOSOL R SOLN(*) 1000 ML BAG 1,000 ML IV PRN; +OXYC5CAP21 PO; +TADA2.5T3 PO; +TRAM-420 PO; -ceFAZolin(*) 2GM/D5W 50ML 50 ML IVPB ONE
== END ==
LOC: LAB 10:08
PROVIDERS: ATTEND Nurse Practitioner
DX: R53.83 Other fatigue (principal); E03.9 Hypothyroidism, unspecified; R30.0 Dysuria
CPT/HCPCS: 36415; 82040; 82247; 82310; 82374; 82435; 82565; 82607; 82947; 84075; 84132; 84155; 84295; 84443; 84450; 84460; 84520; 87088

== ENCOUNTER → 2019-03-04 | Outpatient (CLI) | payer MEDICARE, MEDICAID ==
[2019-01-18 10:27] VITALS: BMI 28.5
--- NOTE | 2019-03-04 15:53 | EKG ---
FACILITY: [facility] PATIENT NAME: SUSSY HALL : [id number] MR: [id number] V: [id number] EXAM DATE: ORDERING PHYSICIAN: BECKY JOHNSON TECHNOLOGIST: Test Reason : Pre-op Blood Pressure : / mmHG Vent. Rate : 096 BPM Atrial Rate : 096 BPM P-R Int : 138 ms QRS Dur : 094 ms QT Int : 360 ms P-R-T Axes : 067 044 067 degrees QTc Int : 454 ms Normal sinus rhythm Normal ECG No previous ECGs available Confirmed by LENNY RODRIGUEZ ([id number]) on 03/05/2019 6:35:53 AM Referred By: Confirmed By:LENNY RODRIGUEZ
[2019-03-04 16:28] LABS: PLATELET COUNT, AUTOMATED 167 K/uL (150-450)
== END ==
LOC: LAB 15:17
PROVIDERS: ATTEND Orthopaedic Surgery
DX: Z01.812 Encounter for preprocedural laboratory examination (principal); Z01.810 Encounter for preprocedural cardiovascular examination; M75.42 Impingement syndrome of left shoulder; F41.9 Anxiety disorder, unspecified; F43.10 Post-traumatic stress disorder, unspecified; Z72.0 Tobacco use; F10.99 Alcohol use, unspecified with unspecified alcohol-induced disorder; I10 Essential (primary) hypertension; Z99.81 Dependence on supplemental oxygen; J44.9 Chronic obstructive pulmonary disease, unspecified; E11.9 Type 2 diabetes mellitus without complications; E03.9 Hypothyroidism, unspecified; K21.9 Gastro-esophageal reflux disease without esophagitis; M06.9 Rheumatoid arthritis, unspecified; M10.9 Gout, unspecified
CPT/HCPCS: 36415; 82040; 82247; 82310; 82374; 82435; 82565; 82947; 83036; 84075; 84132; 84155; 84295; 84450; 84460; 84520; 85025; 93005

== ENCOUNTER 2019-03-14 01:32 | Observation (INO) | payer MEDICARE, MEDICAID ==
[2019-01-18 10:27] VITALS: Ht 170.2 cm; Wt 83.5 kg
[~2019-03-14] VITALS: Ht 170.2 cm; Wt 83.5 kg
[2019-03-14] VITALS (12 sets, daily range): BP systolic 118–181; BP diastolic 81–129
[~2019-03-14 01:32] MED LIST changes: +BUPR-147 PO
[2019-03-14] MEDS ORDERED: ROPIVACAINE 0.5% 20 ML VIAL ONE (10:29)
[2019-03-14] MEDS ORDERED: ROPIVACAINE 0.2% 20 ML VIAL ONE ×2 (10:29→13:10)
[2019-03-14] MEDS ORDERED: DEXAMETHASONE SOD PHOS 10MG/ML ONE (10:31)
[2019-03-14] MEDS ORDERED: LIDOCAINE MPF 1% 5 ML VIAL ONE (10:32)
[2019-03-14] MEDS: NORMOSOL R SOLN(*) 1000 ML BAG 1,000 ML IV PRN ×2 (11:47→15:53)
[2019-03-14] MEDS ORDERED: FAMOTIDINE 20 MG TAB PO ONE (12:25)
[2019-03-14] MEDS ORDERED: LIDOCAINE 2% IV 100 MG/5ML SYR ONE (12:35)
[2019-03-14] MEDS ORDERED: fentaNYL CITR 100 MCG/2 ML AMP ONE ×2 (12:35→13:48)
[2019-03-14] MEDS ORDERED: ceFAZolin(*) 2GM/D5W 50ML 50 ML IVPB ONE (13:00)
[2019-03-14] MEDS ORDERED: MIDAZOLAM 2 MG/2 ML VIAL IVP PRN (13:00)
[2019-03-14] MEDS ORDERED: LIDOCAINE/SOD BICARB 8.4% SYR ID ONE (13:00)
[2019-03-14] MEDS ORDERED: CELECOXIB 200 MG CAP PO ONE (13:00)
[2019-03-14] MEDS ORDERED: PROPOFOL EMUL 10MG/ML 20 ML VL ONE (13:33)
[2019-03-14] MEDS ORDERED: ONDANSETRON 4 MG/2 ML VIAL ONE ×2 (13:49→16:06)
[2019-03-14] MEDS ORDERED: MAGNESIUM HYDROXIDE* 30ML UDCP PO PRN (16:00)
[2019-03-14] MEDS ORDERED: oxyCODONE HCL 5 MG CAP PO PRN (16:00)
[2019-03-14] MEDS ORDERED: BISACODYL 10 MG SUPP PR PRN (16:00)
[2019-03-14] MEDS ORDERED: MORPHINE 4 MG/ML SDV IVP PRN (16:00)
[2019-03-14] MEDS ORDERED: traMADol 50 MG TAB PO PRN (16:00)
[2019-03-14] MEDS ORDERED: PROMETHAZINE 25 MG/ML 1 ML AMP IVP PRN (16:00)
[2019-03-14] MEDS ORDERED: ONDANSETRON 4 MG/2 ML VIAL IVP PRN (16:00)
[2019-03-14] MEDS ORDERED: FLUSH 10 ML SYR IVP PRN (16:00)
[2019-03-14] MEDS ORDERED: ZOLPIDEM TARTRATE 5 MG TAB PO PRN (16:00)
[2019-03-14] MEDS ORDERED: NORMOSOL R SOLN(*) 1000 ML BAG 1,000 ML IV PRN (16:00)
--- NOTE | 2019-03-14 16:51 | Hospitalist Consultation ---
History of Present Illness Requesting Physician Dr. Hays Reason for Consult Medical Management Chief Complaint s/p left shoulder scope History of Present Illness He was admitted s/p left shoulder scope. It is reported the surgery went well and without complication. History Problems: (1) Asthma Status: Chronic (2) Depression Status: Chronic (3) Hypertension Status: Chronic (4) Hypothyroidism Status: Chronic (5) Type 2 diabetes mellitus Status: Chronic (6) Rheumatoid arthritis Status: Chronic (7) Alcohol abuse Home Meds Reported Medications Bupropion Hcl (BUPROPION HCL) 75 Mg Tablet, 75 MG PO QDAY, TAB 03/11/19 Levothyroxine Sodium (SYNTHROID) 25 Mcg Tablet, 25 MCG PO QDAY 01/17/19 Metformin Hcl (GLUCOPHAGE XR) 500 Mg Tab.er.24h, 1 TAB PO QDAY, TAB 01/17/19 Cyclobenzaprine Hcl (CYCLOBENZAPRINE HCL) 10 Mg Tablet, 10 MG PO TID PRN for SPASMS, TAB 12/13/18 Cholecalciferol (Vitamin D3) (VITAMIN D3) 1,000 Unit Tablet, 1000 UNIT PO QDAY, TAB 12/13/18 Tiotropium [place] (SPIRIVA) 18 Mcg/Cap Inh, 18 MCG INH QDAY, INH 12/13/18 Losartan Potassium (LOSARTAN POTASSIUM) 25 Mg Tablet, 25 MG PO QDAY 12/13/18 Ipratropium/Albuterol Sulfate (IPRAT-ALBUT 0.5-3(2.5) MG/3 ML) 3 Ml Ampul.neb, 3 ML IH QDAY PRN for WHEEZING 12/13/18 Folic Acid (FOLIC ACID) 1 Mg Tablet, 1 MG PO QDAY, TAB 12/13/18 Atorvastatin Calcium (ATORVASTATIN CALCIUM) 40 Mg Tablet, 1 TAB PO QDAY, TAB 12/13/18 Aspirin (ASPIRIN) 81 Mg Tab.chew, 81 MG PO QDAY, TAB.CHEW 12/13/18 Ciclesonide (ALVESCO) 6.1 Gm Hfa.aer.ad, 160 MCG IH BID 12/13/18 Albuterol Sulfate (Proair Hfa) 8.5 Gm Aer.w.adap, 8.5 GM IH PRN, 0 Refills 11/13/11 Discontinued Reported Medications Bupropion Hcl (WELLBUTRIN SR) 150 Mg Tablet.er, 150 MG PO QDAY, TAB 01/17/19 Ciclesonide (ALVESCO) 6.1 Gm Hfa.aer.ad, 160 MCG IH BID 01/17/19 Tadalafil (CIALIS) 2.5 Mg Tablet, 2.5 MG PO QDAY 01/17/19 Bupropion Hcl (BUPROPION XL) 150 Mg Tab.er.24h, 150 MG PO QDAY, #10 TAB 12/13/18 Discontinued Scripts Ondansetron 4 Mg Odt (ONDANSETRON 4 MG ODT) 4 Mg Tab.rapdis, 4 MG PO Q6H PRN for NAUSEA/VOMITING, #20 TAB 0 Refills Prov:HARRY CAMILO MD 12/27/18 Allergies: Coded Allergies: No Known Drug Allergies (Verified , 03/11/19) Uncoded Allergies: tijer[place] peppers (Adverse Reaction, Mild, GI DISTRESS, 01/25/10) [place] peppers only. Other types of peppers OK. Patient History: FH: asthma FATHER, , Age:77 FH: diabetes mellitus MOTHER, Age:85 High blood pressure FATHER, , Age:77 Hx Smoking: No (2 YEAR X 1-2 CIGS) Smoking Status: Current: Some Days Smoker Exposure to Second Hand Smoke?: No Caffeine Intake: Coffee Caffeine/Cups Per Day: 2 CUPS Hx Alcohol Use: Yes (2 beers per night) Hx Substance Use Disorder: No (MARIJUANA FORMER ) Social Drug Use: Former Social Drugs: Marijuana Amount Of Social Drug/s Used: THINKS HE HAD SOME THIS PAST WEEK Review of Systems All Systems Reviewed/Normal: Yes, Except as Noted Exam Vital Signs Vital Signs Date Time Temp Pulse Resp B/P (MAP) Pulse Ox O2 Delivery O2 Flow Rate FiO2 03/14/19 17:15 76 152/99 (116) 95 Nasal Cannula 2.0 03/14/19 16:50 96.9 12 General Appearance: Alert, Awake, No Acute Distress, Afebrile Cardiovascular: Regular Rate and Rhythm Respiratory: No Respiratory Distress, Clear to Auscultation GI: Abd Soft and Non-Tender Psych: Alert & Oriented X3, Appropriate Mood & Affect Assessment and Plan Problems: (1) S/P arthroscopy of left shoulder Status: Acute Assessment & Plan: Followed by Dr. Hays. (2) Hypertension Status: Chronic Assessment & Plan: He is on chronic treatment with Losartan. Continue. (3) Type 2 diabetes mellitus Status: Chronic Assessment & Plan: He is on chronic treatment with Metformin. He will be placed on AC/HS blood glucose checks and SS insulin #1. (4) Asthma Status: Chronic Assessment & Plan: He is on chronic treatment with Spiriva and [place]ves[place] inhalers. Continue. (5) Hypothyroidism Status: Chronic Assessment & Plan: He is on chronic treatment with Levothyroxine. Continue. (6) Depression Status: Chronic Assessment & Plan: He is on chronic treatment with Wellbutrin. Continue. (7) Rheumatoid arthritis Status: Chronic Assessment & Plan: He is on chronic treatment with Remicade infusions, as well as prednisone. He did stop both medications 3 weeks ago in anticipation of surgery. (8) Alcohol abuse Assessment & Plan: He reports long history of alcohol abuse. His last drink was last night (beer and shots). He will be placed on CIWA. 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 Valium is ordered if needed. Venous Thromboembolism Antithrombotics Is Pt On Any Antithrombotics?: No Prophylaxis Tx Contraindicated Pharmacological Contraindicati: Surgical Contraindication Problem Qualifiers (1) Hypertension: Hypertension type: essential hypertension Qualified Codes: I10 - Essential (primary) hypertension KENNY HERNANDEZP Mar 14, 2019 16:51
[2019-03-14] MEDS ORDERED: ALBUTEROL 8 GM INHALER INH PRN (17:15)
[2019-03-14] MEDS ORDERED: DIAZEPAM 10 MG TAB PO PRN ×2 (17:20)
[2019-03-14] MEDS ORDERED: NS(*) 0.9% 250 ML BAG 250 ML ONE (18:01)
[2019-03-14] MEDS: ACETAMINOPHEN 500 MG TAB PO SCH (18:27)
[2019-03-14] MEDS: KETOROLAC TROM 10MG TAB PO PRN (18:28)
[2019-03-14] MEDS: INSULIN HUM LISPRO 100 UN/ML 3 ML VIAL SUBQ PRN ×2 (18:28→21:53)
--- NOTE | 2019-03-14 19:46 | NUR ---
TEDs not placed d/t patient only having use of one arm, unable to place TEDs and remove with one hand. SCDs in use, patient ambulating. Addendum: 03/14/19 at 1947 by DENA CARRILLO RN Amended: Links added.
[2019-03-14] MEDS: ceFAZolin(*) 1 GM VIAL 1 GM in NS(*) 0.9% 100 ML MINI-BAG 100 ML IVPB SCH (21:31)
[2019-03-15] VITALS: BP 132/92
[2019-03-15] MEDS: KETOROLAC TROM 10MG TAB PO PRN (01:02)
[2019-03-15] MEDS: ACETAMINOPHEN 500 MG TAB PO SCH ×2 (01:02→08:37)
[2019-03-15 02:54] VITALS: BP 144/92
--- NOTE | 2019-03-15 04:03 | OPERATIVE REPORT 1 ---
EVENT DATE: March 14, 2019 SURGEON: Fady Hays MD ANESTHESIOLOGIST: Koby Brewer MD ANESTHESIA: Left interscalene block followed by general. PLUMBING TECHNICIAN: Nixon Campoverde PA-C PREOPERATIVE DIAGNOSIS Left shoulder impingement with full-thickness tear of the rotator cuff. POSTOPERATIVE DIAGNOSIS Left shoulder impingement with full-thickness tears of the supraspinatus and infraspinatus, absent biceps tendon with labral degenerative tearing circumferentially, grade 2 chondromalacia of the humeral head. PROCEDURE PERFORMED Left shoulder arthroscopy with debridement of humeral head chondromalacia and glenoid labral degenerative tearing, debridement of rotator cuff, arthroscopic repair of rotator cuff followed by subacromial decompression. IMPLANTS Two Cai and Nephew 4.5 mm Healicoil suture anchors and two Cai and Nephew 4.5 mm footprint anchors. SPECIMENS None. COMPLICATIONS None. BLOOD LOSS Less than 5 mL. DESCRIPTION OF PROCEDURE Patient was brought to the OR after receiving appropriate preoperative antibiotic, and Dr. Brewer performed left interscalene block followed by general anesthesia. Patient was then placed in a right lateral decubitus position, left shoulder up with appropriate padding and positioners. Left shoulder was then prepped and draped in the usual fashion. The limb was placed in 12 pounds of traction, no abduction. Posterior portal was established and the scope inserted. Through an outside-in technique, we established our anterior portal. There was generalized synovitis and hyperemia. There was circumferential labral degenerative tearing, particularly superiorly, and this WAS debrided down to stable base with a shaver. Grade 2 chondromalacia was noted of the humeral head, and this was debrided. The biceps anchor was debrided, as the biceps had previously torn. A full-thickness tear of cuff was noted. We then placed the scope from the posterior portal in the subacromial space and established our lateral portal under arthroscopic visualization by needle localization. The shaver was inserted. Bursal reaction was debrided only for visualization. Noted significant CA ligament tearing, and we debrided the full-thickness cuff tear down to a stable base. Footprint was debrided with the shaver, surface strap device, and a bur down to punctate bleeding bone. The CA ligament was released. The undersurface of the anterior third of the acromion was debrided of soft tissue utilizing the surface strap device. An 8.5 mm cannula was placed in laterally, a 5.5 mm cannula anteriorly. We placed our first suture anchor, essentially footprint at the junction of the anterior and middle thirds at a 45-degree angle. These sutures were passed anteriorly. One by one, we passed them to the lateral portal, and then we took full-thickness bites, spacing these out evenly from the anterior portion of the tear to the middle portion of the tear. A second suture was placed at the junction of the middle and posterior thirds of the footprint centrally at a 45- degree angle. Again, these sutures were passed anteriorly, one by one passed through the lateral portal; and utilizing an Elite suture passer, taking full- thickness bites, we passed these sutures through the cuff tear from mid tear to posteriorly, spacing these out evenly. We then tied the four sutures from posterior to anterior arthroscopically. We then took one of the sutures from each of the knots and established our first footprint anchor 4.5 mm anteriorly on the footprint, laterally on the greater tuberosity, in standard fashion. In similar fashion, we established our posterior footprint anchor. This created second-row cross-bridging technique, and our cuff tear was stabilized. We then placed our bur and performed an SAD starting from 5 mm anteriorly, beveling to the junction of the anterior and middle thirds in a 90/90 technique. We evaluated the distal clavicle. There was no significant spurring. There was good space. Instrumentation was removed. Portals were closed subcutaneously with 4-0 Monocryl followed by Steri-Strips, and then we injected the portals with ropivacaine, as well as the subacromial space. We applied a dressing and UltraSling. Patient was extubated and taken to recovery in stable condition. He will be admitted overnight for medical issues, and hospitalist team will be consulted for medical management. Protocol therapy will be started later in the week. We will see him next week in our [place] clinic. GALE
[2019-03-15] MEDS: ceFAZolin(*) 1 GM VIAL 1 GM in NS(*) 0.9% 100 ML MINI-BAG 100 ML IVPB SCH (05:12)
[2019-03-15 05:19] VITALS: BP 134/87
[2019-03-15] MEDS ORDERED: TIOTROPIUM BROM INH 18 MCG/CAP INH SCH (06:00)
[2019-03-15] MEDS ORDERED: CICLESONIDE 160 MCG SCH (06:00)
[2019-03-15] MEDS ORDERED: LEVOTHYROXINE SOD 0.025 MG TAB PO SCH (06:00)
[2019-03-15 07:54] VITALS: BP 141/93
[2019-03-15] MEDS ORDERED: KET10 PO (08:23)
[2019-03-15] MEDS ORDERED: OXYC5CAP21 PO (08:24)
[2019-03-15] MEDS ORDERED: TRAM-420 PO (08:25)
[2019-03-15] MEDS: INSULIN HUM LISPRO 100 UN/ML 3 ML VIAL SUBQ PRN (08:38)
[2019-03-15] MEDS ORDERED: buPROPion IR 75 MG TAB PO SCH (09:00)
[2019-03-15] MEDS ORDERED: ASPIRIN 81 MG CHEW CHEW SCH (09:00)
[2019-03-15] MEDS ORDERED: LOSARTAN POTASSIUM 50 MG TAB PO SCH (09:00)
[2019-03-15] MEDS ORDERED: ATORVASTATIN 40 MG TAB PO SCH (09:00)
[2019-03-15] MEDS ORDERED: metFORMIN HCL XR 500 MG TABCR PO SCH (09:00)
--- NOTE | 2019-03-15 09:51 | Hospitalist Progress Note ---
Subjective Progress Notes Subjective He was admitted after shoulder arthroscopy. He has no complaints this morning. He had no acute events overnight. Patient Complains of: Cardiovascular: No: Chest Pain Respiratory: No: Shortness of Breath Physical Exam Vital Signs Date Time Temp Pulse Resp B/P (MAP) Pulse Ox O2 Delivery O2 Flow Rate FiO2 03/15/19 07:54 98.2 90 16 141/93 (109) 93 Nasal Cannula 03/15/19 05:19 1.0 Intake and Output 03/15/19 07:00 Intake Total 2584 ml Output Total 1850 ml Balance 734 ml Intake Oral 1384 ml IV Total 1200 ml Output Urine Total 1850 ml # Voids 3 General Appearance: Alert, Awake, No Acute Distress, Afebrile Neuro: No Gross deficits Cardiovascular: Regular Rate and Rhythm Respiratory: No Respiratory Distress, Clear to Auscultation GI: Soft and Non-Tender Extremities: Other (left hand swollen) Psych: Alert & Oriented X3, Appropriate Mood & Affect Assessment and Plan Problems: (1) S/P arthroscopy of left shoulder Status: Acute Assessment & Plan: Followed by Dr. Hays. (2) Hypertension Status: Chronic Assessment & Plan: He is on chronic treatment with Losartan. Continue. (3) Type 2 diabetes mellitus Status: Chronic Assessment & Plan: He is on chronic treatment with Metformin. He will be placed on AC/HS blood glucose checks and SS insulin #1. (4) Asthma Status: Chronic Assessment & Plan: He is on chronic treatment with Spiriva and [place]ves[place] inhalers. Continue. (5) Hypothyroidism Status: Chronic Assessment & Plan: He is on chronic treatment with Levothyroxine. Continue. (6) Depression Status: Chronic Assessment & Plan: He is on chronic treatment with Wellbutrin. Continue. (7) Rheumatoid arthritis Status: Chronic Assessment & Plan: He is on chronic treatment with Remicade infusions, as well as prednisone. He did stop both medications 3 weeks ago in anticipation of surgery. (8) Alcohol abuse Assessment & Plan: He reports long history of alcohol abuse. His last drink was last night (beer and shots). He will be placed on CIWA. 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 Valium is ordered if needed. Exam Sepsis Risk: No Definite Risk Problem Qualifiers (1) Hypertension: Hypertension type: essential hypertension Qualified Codes: I10 - Essential (primary) hypertension KENNY HERNANDEZ Mar 15, 2019 09:51
== END 2019-03-15 08:33 | disposition home or self-care (01) ==
LOC: OR 01:32 → MED 17:48
PROVIDERS: ADMIT Orthopaedic Surgery; ATTEND Orthopaedic Surgery
DX: M75.122 Complete rotator cuff tear or rupture of left shoulder, not specified as traumatic (principal); M75.42 Impingement syndrome of left shoulder; E11.9 Type 2 diabetes mellitus without complications; I10 Essential (primary) hypertension; E03.9 Hypothyroidism, unspecified; J45.909 Unspecified asthma, uncomplicated; Z79.82 Long term (current) use of aspirin; F32.9 Major depressive disorder, single episode, unspecified; F10.10 Alcohol abuse, uncomplicated; F12.90 Cannabis use, unspecified, uncomplicated; M06.9 Rheumatoid arthritis, unspecified; J44.9 Chronic obstructive pulmonary disease, unspecified; G47.33 Obstructive sleep apnea (adult) (pediatric)
CPT/HCPCS: 29826; 29827; 36416; 82948; 94640; A4565; A9270; C1713; G0378; J0690; J1100; J1815; J2001; J2405; J2704; J2795; J3010; J3535; J7050; 96372

== ENCOUNTER 2019-07-14 13:32 | Emergency (ER) | payer MEDICARE, MEDICAID ==
[2019-01-18 10:27] VITALS: Wt 84.8 kg
[~2019-07-14 13:32] MED LIST changes: -HYDR-4225 PO; -OMEP40CA48 PO; -SUCR1TAB85 PO
--- NOTE | 2019-07-14 13:42 | ER Report ---
History and Physical Time Seen By MD: 13:38 HPI/ROS CHIEF COMPLAINT: vomiting blood HISTORY OF PRESENT ILLNESS: Patient is a 58 year old male c/o vomiting blood. He is intoxicated on arrival. Patient unable to answer questions. States he has be en drinking 1L hard alcohol and 6 pack of beer per day since he was diagnosed with Cancer 3 weeks ago. Patient states he has had a little bit to drink today. He denies any fevers, chills, shortness of breath. REVIEW OF SYSTEMS: Respiratory: No cough, no dyspnea. Cardiovascular: No chest pain, no palpitations. Gastrointestinal: No vomiting, abdominal pain. Musculoskeletal: No back pain. Allergies: Coded Allergies: No Known Drug Allergies (Verified , 07/14/19) Uncoded Allergies: [place]ijer[place] peppers (Adverse Reaction, Mild, GI DISTRESS, 01/25/10) [place]ijer[place] peppers only. Other types of peppers OK. Home Meds Active Scripts Hydroxyzine Hcl (HYDROXYZINE HCL) 25 Mg Tablet, 25 MG PO Q6H, #15 TAB Prov:BERTHA KIM [facility] 07/14/19 Omeprazole (OMEPRAZOLE) 40 Mg Capsule.dr, 40 MG PO QDAY, #30 CAP Prov:BERTHA KIM [facility] 07/14/19 Sucralfate (CARAFATE) 1 Gm Tablet, 1 GM PO QID, #60 TAB Take before meals and at bedtime. Crush the tablet and mix with water before taking. Prov:BERTHA KIM [facility] 07/14/19 Reported Medications Tramadol Hcl (TRAMADOL HCL) 50 Mg Tablet, 50-100 MG PO Q6H for pain, #20 TAB 03/15/19 Oxycodone Hcl (OXYCODONE HCL) 5 Mg Capsule, 5 MG PO Q4-6H for PAIN, #16 TAB 03/15/19 Ketorolac Tromethamine (KETOROLAC TROMETHAMINE) 10 Mg Tab, 10 MG PO Q6-8H for PAIN, #12 TAB 03/15/19 Bupropion Hcl (BUPROPION HCL) 75 Mg Tablet, 75 MG PO QDAY, TAB 03/11/19 Levothyroxine Sodium (SYNTHROID) 25 Mcg Tablet, 25 MCG PO QDAY 01/17/19 Metformin Hcl (GLUCOPHAGE XR) 500 Mg Tab.er.24h, 1 TAB PO QDAY, TAB 01/17/19 Cholecalciferol (Vitamin D3) (VITAMIN D3) 1,000 Unit Tablet, 1000 UNIT PO QDAY, TAB 12/13/18 Tiotropium [place] (SPIRIVA) 18 Mcg/Cap Inh, 18 MCG INH QDAY, INH 12/13/18 Losartan Potassium (LOSARTAN POTASSIUM) 25 Mg Tablet, 25 MG PO QDAY 12/13/18 Ipratropium/Albuterol Sulfate (IPRAT-ALBUT 0.5-3(2.5) MG/3 ML) 3 Ml Ampul.neb, 3 ML IH QDAY PRN for WHEEZING 12/13/18 Folic Acid (FOLIC ACID) 1 Mg Tablet, 1 MG PO QDAY, TAB 12/13/18 Atorvastatin Calcium (ATORVASTATIN CALCIUM) 40 Mg Tablet, 1 TAB PO QDAY, TAB 12/13/18 Aspirin (ASPIRIN) 81 Mg Tab.chew, 81 MG PO QDAY, TAB.CHEW 12/13/18 Ciclesonide (ALVESCO) 6.1 Gm Hfa.aer.ad, 160 MCG IH BID 12/13/18 Albuterol Sulfate (Proair Hfa) 8.5 Gm Aer.w.adap, 8.5 GM IH PRN, 0 Refills 11/13/11 Past Medical/Surgical History Patient has past medical history of seizures, migraines, angina, hypertension, h yperlipidemia, asthma, emphysema, pneumonia, COPD, pancreatitis, reflux, arthritis, diabetes, hypothyroidism, rheumatoid arthritis, marijuana abuse, alcohol abuse, depression, anxiety, PTSD. Patient has surgical history of metal removed from eye, bilateral shoulder surgery, left wrist surgery, appendectomy. Patient has a family medical history of cancer, CAD, stroke, diabetes, psychiatric problems. Reviewed Nurses Notes: Yes Hx Smoking: No (2 YEAR X 1-2 CIGS) Smoking Status: Current: Some Days Smoker Exposure to Second Hand Smoke?: No Hx Substance Use Disorder: No (MARIJUANA FORMER ) Hx Alcohol Use: Yes (2 beers per night) Constitutional Vital Sign - Last 24 Hours 07/14/19 07/14/19 07/14/19 07/14/19 13:32 13:33 13:45 14:00 Temp 98.8 Pulse 106 106 Resp 20 B/P (MAP) 167/107 144/101 (115) Pulse Ox 92 92 O2 Delivery Room Air O2 Flow Rate 3.0 8/22/07/14/19 07/14/19 07/14/19 14:02 14:30 14:32 15:00 Pulse 93 95 Resp 6 0 B/P (MAP) 155/114 (128) 157/112 (127) Pulse Ox 84 Physical Exam General Appearance: The patient is alert, has no immediate need for airway protection and no current signs of toxicity. Eyes: Pupils equal and round no injection. Respiratory: Chest is non tender, lungs are clear to auscultation. Cardiac: regular rate and rhythm Gastrointestinal: Abdomen is soft, LUQ tenderness, no masses, bowel sounds normal. Musculoskeletal: Neck: Neck is supple and non tender. Extremities have full range of motion and are non tender. Skin: No rashes or lesions, ecchymosis of left eye DIFFERENTIAL DIAGNOSIS: After history and physical exam differential diagnosis was considered for alcohol abuse, esophageal varicies, GI bleed, gastric ulcer Medical Decision Making Data Points Result Diagram: 07/14/19 1344 07/14/19 1344 Laboratory Hematology Test 07/14/19 13:44 White Blood Count 6.0 k/uL (4.5-11.0) Red Blood Count 5.69 M/uL (4.00-5.60) H Hemoglobin 18.8 g/dL (14.0-18.0) H Hematocrit 52.5 % (42.0-52.0) H Mean Corpuscular Volume 92.3 fL (80.0-96.0) Mean Corpuscular Hemoglobin 33.0 pg (26.0-33.0) Mean Corpuscular Hemoglobin Concent 35.8 g/dL (32.0-36.0) Red Cell Distribution Width 12.8 % (11.5-14.5) Platelet Count 188 K/uL (150-450) Mean Platelet Volume 9.4 fL (7.2-11.1) Neutrophils (%) (Auto) 58.7 % (39.4-72.5) Lymphocytes (%) (Auto) 27.0 % (17.6-49.6) Monocytes (%) (Auto) 11.6 % (4.1-12.4) Eosinophils (%) (Auto) 1.2 % (0.4-6.7) Basophils (%) (Auto) 1.2 % (0.3-1.4) Nucleated RBC Relative Count (auto) 0.0 /100WBC Neutrophils # (Auto) 3.5 K/uL (2.0-7.4) Lymphocytes # (Auto) 1.6 K/uL (1.3-3.6) Monocytes # (Auto) 0.7 K/uL (0.3-1.0) Eosinophils # (Auto) 0.1 K/uL (0.0-0.5) Basophils # (Auto) 0.1 K/uL (0.0-0.1) Nucleated RBC Absolute Count (auto) 0.00 K/uL Erythrocyte Sedimentation Rate 8 mm/HOUR (0-20) Chemistry Test 07/14/19 13:44 Sodium Level 137 mmol/L (137-145) Potassium Level 4.1 mmol/L (3.5-5.0) Chloride Level 99 mmol/L (98-107) Carbon Dioxide Level 24 mmol/L (22-30) Blood Urea Nitrogen 8 mg/dl (9-21) Creatinine 0.60 mg/dl (0.66-1.25) Glomerular Filtration Rate Calc > 60.0 Random Glucose 350 mg/dl (75-110) Calcium Level 8.6 mg/dl (8.4-10.2) Total Bilirubin 1.0 mg/dl (0.2-1.3) Aspartate Amino Transf (AST/SGOT) 231 U/L (0-35) Alanine Aminotransferase (ALT/SGPT) 153 U/L (0-56) Alkaline Phosphatase 158 U/L (0-126) Total Protein 7.8 g/dl (6.3-8.2) Albumin 4.4 g/dl (3.5-5.0) Amylase Level 70 U/L (0-110) Lipase 115 U/L (23-300) Toxicology Test 07/14/19 13:44 Serum Alcohol 299 mg/dl Urinalysis Test 07/14/19 14:12 Urine Color Straw Urine Clarity Clear Urine pH 7.0 pH (4.8-9.5) Urine Specific Register 1.003 Urine Protein Negative mg/dL (NEGATIVE) Urine Glucose (UA) 500 mg/dL (NEGATIVE) Urine Ketones Negative mg/dL (NEGATIVE) Urine Blood Small (NEGATIVE) Urine Nitrite Negative (NEGATIVE) Urine Bilirubin Negative (NEGATIVE) Urine Urobilinogen Negative mg/dL (0.2-1.9) Urine Leukocyte Esterase Negative (NEGATIVE) Urine RBC <1 /HPF (0-2/HPF) Urine WBC <1 /HPF (0-5/HPF) Urine Squamous Epithelial Cells Few /LPF (</=FEW) Urine Bacteria Negative /HPF (NONE-FEW) Urine Mucus None /HPF (NONE-FEW) EKG/Imaging Imaging EXAMINATION: CT abdomen and pelvis with contrast COMPARISON: 12/27/2018 CT. HISTORY: abdominal pain, hematemesis PROCEDURE: Multiplanar contrast enhanced CT of the abdomen and pelvis with 75 mL intravenous Isovue 370. One of the following dose optimization techniques was utilized in the performance of this exam: Automated exposure control; adjustment of the mA and/or kV according to the patient's size; or use of an iterative reconstruction technique. Specific details can be referenced in the facility's radiology CT exam operational policy. FINDINGS: Visualized thorax: Lung base volume loss versus scarring. No acute findings. Liver: Severe hepatic steatosis. Gallbladder and biliary system: Negative Spleen: Negative. Pancreas: A few small dystrophic calcifications in the pancreatic head and uncinate are suggestive of prior inflammation. No acute changes. Adrenal glands: Negative. Kidneys and bladder: Small cysts are unchanged. No mass or hydronephrosis. Vessels: Minimal aortoiliac atherosclerosis. Otherwise negative. Bowel and mesentery: Stomach and small bowel are within normal limits. The appendix is not visualized; no pericecal inflammation. Small amount of stool in the colon. There are a few colonic diverticula. Mesenteric root stranding has decreased in the interval. Pelvic organs: Mildly enlarged and heterogeneous prostate. Lymph nodes: No adenopathy. Free air/free fluid: None. Musculoskeletal: Tiny fat-containing umbilical hernia. L5-S1 moderate degen erative disc disease. IMPRESSION: 1. No findings of acute disease in the abdomen or pelvis. 2. Severe hepatic steatosis. 3. Additional chronic/incidental findings as described in the body of the r eport. Report Dictated By: Keith Briggs MD at 07/14/2019 3:57 PM Report E-Signed By: Keith Briggs MD at 07/14/2019 4:11 PM ED Course/Re-evaluation ED Course Patient was admitted and examined, history and physical were obtained. Differential diagnoses were considered. I examination lungs are clear, heart is regular, abdomen was soft and tender especially in the left upper quadrant. An IV was started, a CBC, CMP, ESR, amylase, lipase were done. Lab results were negative. I discussed the findings with the patient. A CT scan of the abdomen and pelvis was done which showed no acute findings. Patient was informed of imaging results. Patient did not have any episodes of emesis here in the emergency room, he did not have any hematemesis here in the emergency room. We'll go ahead and place him on a as reducing medication, Carafate and hydroxyzine for anxiety. We'll go ahead and discharge patient home at this time. He is follow-up with his primary care provider the next week. Patient verbalized understanding and agreement with plan. Decision to Disposition Date: Jul 14, 2019 Decision to Disposition Time: 16:42 Depart Departure Latest Vital Signs Vital Signs Date Time Temp Pulse Resp B/P (MAP) Pulse Ox O2 Delivery O2 Flow Rate FiO2 07/14/19 15:00 157/112 (127) 07/14/19 14:32 95 0 84 07/14/19 13:45 3.0 07/14/19 13:33 98.8 Room Air Impression: Primary Impression: Alcoholic gastritis Additional Impression: Anxiety Condition: Improved Disposition: HOME OR SELF-CARE New Scripts Hydroxyzine Hcl (HYDROXYZINE HCL) 25 Mg Tablet 25 MG PO Q6H, #15 TAB Prov: BERTHA KIM 07/14/19 Omeprazole (OMEPRAZOLE) 40 Mg Capsule. 40 MG PO QDAY, #30 CAP Prov: BERTHA KIM 07/14/19 Sucralfate (CARAFATE) 1 Gm Tablet 1 GM PO QID, #60 TAB Take before meals and at bedtime. Crush the tablet and mix with water before taking. Prov: BERTHA KIM 07/14/19 Patient Instructions: Gastritis (ED) Additional Instructions: Limit alcohol intake. Get plenty of rest. Take medication as prescribed. Follow up with Dr. Kirk in the next week. Return to the ER if condition worsens. Problem Qualifiers Primary Impression: Alcoholic gastritis Chronicity: acute Gastritis bleeding: presence of bleeding unspecified Qualified Codes: K29.20 - Alcoholic gastritis without bleeding BERTHA KIM Jul 14, 2019 13:42
[2019-07-14] MEDS ORDERED: NS(*) 0.9% 1000 ML BAG 1,000 ML IV ONE (13:50)
[2019-07-14] MEDS ORDERED: ONDANSETRON 4 MG/2 ML VIAL IVP ONE (13:50)
[2019-07-14] MEDS ORDERED: IOPAMIDOL 76% 100 ML INFUS BTL 100 ML ONE (14:06)
[2019-07-14 14:42] LABS: PLATELET COUNT, AUTOMATED 188 K/uL (150-450)
[2019-07-14 15:00] VITALS: BP 157/112
--- NOTE | 2019-07-14 16:19 | RADIOLOGY IMAGING REPORT ---
FACILITY: [facility] PATIENT NAME: Casey Guzman : 1960 MR: [id number] V: [id number] EXAM DATE: ORDERING PHYSICIAN: BERTHA KIM TECHNOLOGIST: Location: [facility] Patient: Casey Guzman : 1960 Visit/Account:[id number] Date of Sevice: 07/14/2019 EXAMINATION: CT abdomen and pelvis with contrast COMPARISON: 12/27/2018 CT. HISTORY: abdominal pain, hematemesis PROCEDURE: Multiplanar contrast enhanced CT of the abdomen and pelvis with 75 mL intravenous Isovue 3 70. One of the following dose optimization techniques was utilized in the performance of this exam: A utomated exposure control; adjustment of the mA and/or kV according to the patient's size; or use of an iterative reconstruction technique. Specific details can be referenced in the facility's radiolo gy CT exam operational policy. FINDINGS: Visualized thorax: Lung base volume loss versus scarring. No acute findings. Liver: Severe hepatic steatosis. Gallbladder and biliary system: Negative Spleen: Negative. Pancreas: A few small dystrophic calcifications in the pancreatic head and uncinate are suggestive of prior inflammation. No acute changes. Adrenal glands: Negative. Kidneys and bladder: Small cysts are unchanged. No mass or hydronephrosis. Vessels: Minimal aortoiliac atherosclerosis. Otherwise negative. Bowel and mesentery: Stomach and small bowel are within normal limits. The appendix is not visualized ; no pericecal inflammation. Small amount of stool in the colon. There are a few colonic diverticula. Mesenteric root stranding has decreased in the interval. Pelvic organs: Mildly enlarged and heterogeneous prostate. Lymph nodes: No adenopathy. Free air/free fluid: None. Musculoskeletal: Tiny fat-containing umbilical hernia. L5-S1 moderate degenerative disc disease. IMPRESSION: 1. No findings of acute disease in the abdomen or pelvis. 2. Severe hepatic steatosis. 3. Additional chronic/incidental findings as described in the body of the report. Report Dictated By: Keith Briggs MD at 07/14/2019 3:57 PM Report E-Signed By: Keith Briggs MD at 07/14/2019 4:11 PM [id number]
[2019-07-14] MEDS ORDERED: OMEP40CA48 PO (16:47)
[2019-07-14] MEDS ORDERED: SUCR1TAB85 PO (16:47)
[2019-07-14] MEDS ORDERED: HYDR-4225 PO (16:54)
== END 2019-07-14 17:05 | disposition home or self-care (01) ==
LOC: ER 13:49
DX: K29.20 Alcoholic gastritis without bleeding (principal); F41.9 Anxiety disorder, unspecified
CPT/HCPCS: 36415; 74177; 81001; 82150; 83690; 85025; 85651; 86850; 86900; 86901; 96374; 99284; G0480; J2405; J7030; Q9967; 80320; 82040; 82247; 82310; 82374; 82435; 82565; 82947; 84075; 84132; 84155; 84295; 84450; 84460; 84520

== ENCOUNTER → 2019-07-14 | Outpatient (CLI) | payer MEDICARE, MEDICAID ==
[2019-01-18 10:27] VITALS: BMI 28.5
[~2019-07-14] MED LIST changes: +HYDR-4225 PO; +OMEP40CA48 PO; +SUCR1TAB85 PO
== END ==
LOC: AMB 23:54
PROVIDERS: ATTEND Nurse Practitioner
DX: K92.0 Hematemesis (principal); R09.02 Hypoxemia
CPT/HCPCS: A0425; A0427